=== PATIENT | male | born 1935 | race Caucasian/White ===

== ENCOUNTER → 2017-03-10 | Outpatient (CLI) | payer MEDICARE ==
[~2017-03-10] MED LIST: ASP81TEC PO; ATOR80TA PO; CLOP75TA PO; EPIN0.3P2 IM; HYDR-34 PO; IBUP1TAB15 PO; LISI10TA2 PO; Lisinopril; MELA1TAB20 PO; METO-333 PO; OMG1KC PO; PNT40TEC PO; PRAS10TA6 PO; PRD50T PO; RNT150T PO; SULF1TAB35 PO
--- NOTE | 2017-03-10 18:51 | Diagnostic Imaging Report ---
Three views of the left knee. INDICATION: Left knee pain. FINDINGS: No fracture, dislocation or radiopaque foreign body seen. There is a small to moderate suprapatellar effusion. Marginal osteophytes in the 3 compartment seen. There is also evidence of chondrocalcinosis. IMPRESSION: Moderate degenerative changes. Chondrocalcinosis. Joint effusion. Dictated by: Dictated on workstation # [id number]
--- NOTE | 2017-03-10 19:07 | Diagnostic Imaging Report ---
EXAMINATION: Two views of the left hip. INDICATION: Left hip pain. FINDINGS: No fracture, dislocation or radiopaque foreign body is seen. There is moderate narrowing of the joint space, particularly in the medial and lateral aspect with subchondral sclerosis. There is a minimal osteophyte formation. IMPRESSION: Mild to moderate left hip osteoarthritis. Dictated by: Dictated on workstation # [id number]
== END ==
LOC: RAD 16:22
PROVIDERS: ATTEND Family Medicine
DX: M25.562 Pain in left knee (principal); M25.552 Pain in left hip; M17.12 Unilateral primary osteoarthritis, left knee; M11.262 Other chondrocalcinosis, left knee; M25.462 Effusion, left knee; M16.12 Unilateral primary osteoarthritis, left hip
CPT/HCPCS: 73502; 73562

== ENCOUNTER → 2018-02-01 | Outpatient (CLI) | payer MEDICARE ==
[~2018-02-01] VITALS: Ht 185.4 cm; Wt 98.0 kg
[~2018-02-01] MED LIST changes: +CATHETER FLUSH 10 ML SYR IV PRN; +REGADENOSON 0.4 MG/5 ML SYR (LEXISCAN) IV ONE
[2018-02-01 13:10] VITALS: BP 160/84
[2018-02-01 13:14] VITALS: BP 150/62
--- NOTE | 2018-02-01 23:16 | STRESS TEST ---
DATE OF SERVICE: 02/01/2018 LEXISCAN MYOVIEW STRESS TEST REPORT REFERRING PHYSICIAN: Dr. Maradiaga. Baseline heart rate is 61, baseline blood pressure 160/84. Baseline EKG is sinus rhythm with no ischemic changes. In summary, patient was injected with 10.63 mCi of technetium-99 Myoview and the resting images were obtained. Then, the patient received 0.4 mg of Lexiscan followed by 31.0 mCi of technetium-99 Myoview. Throughout the test, there were no EKG changes. The resting and stress images were reviewed and compared in the short axis, horizontal long axis, and vertical long axis views. Review of the images showed increased intestinal and gastric uptake affecting the quality of the images. There is decreased uptake at the basal to mid inferior wall and inferolateral wall with mild reversibility. SSS is 9, SDS 2, TID value 1.07. On the gated images, the left ventricle appeared to be in normal size with normal contractility. Calculated ejection fraction 63%. CONCLUSION: 1. The patient tolerated Lexiscan well. 2. Gastric uptake and intestinal uptake affecting the quality of the images with questionable ischemia involving the mid to apical inferior wall and inferolateral wall. 3. Normal left ventricular size with normal contractility. Calculated ejection fraction 63%. Job ID: [id number] DocumentID: [id number] Dictated Date: 02/01/2018 15:42:33 Steam Box Operator Date: 02/01/2018 23:14:57 Dictated By: SHILPI DE OLIVEIRA MD
== END ==
LOC: CARD 11:47
PROVIDERS: ATTEND Physician Assistant
DX: I25.10 Atherosclerotic heart disease of native coronary artery without angina pectoris (principal); I10 Essential (primary) hypertension; E78.2 Mixed hyperlipidemia
CPT/HCPCS: 78452; 93017

== ENCOUNTER 2018-05-19 09:33 | Day surgery (SDC) | payer MEDICARE ==
[2018-05-19] VITALS (11 sets, daily range): BP systolic 105–138; BP diastolic 56–73
[~2018-05-19] VITALS: Ht 203.2 cm; Wt 94.8 kg
[~2018-05-19 09:33] MED LIST changes: -CATHETER FLUSH 10 ML SYR IV PRN; -REGADENOSON 0.4 MG/5 ML SYR (LEXISCAN) IV ONE
--- NOTE | 2018-05-19 09:48 | ED Chest Pain ---
General Chief Complaint: Chest Pain Stated Complaint: CP Nursing Triage Note: PT STATES CHEST PAIN AT NIGHT THAT STARTED 2 DAYS AGO. LT UPPER CHEST/SHOULDER PAIN RATED AT 4. Nursing Sepsis Screen: No Definite Risk Source: patient Exam Limitations: no limitations History of Present Illness Date Seen by Provider: May 19, 2018 Time Seen by Provider: 09:45 Initial Comments Patient presents c/ c/o chest pain. Had 2 episodes earlier this week @ night that he thought was heartburn. Went away on own. None last PM, but then had an episode this AM. (+) diaphoresis c/ it. No N/V. No dyspnea. Called Dr. Mancera who told him to came here to be checked out. (+) hx of previous stent. Pain better now. Reports he is suppose to take ASA daily but forgets it often. None this AM. States he was taken off Plavix several months ago. Timing/Duration: intermittent, gone now Severity/Quality: moderate Location: shoulder (left upper chest/shoulder) Radiation: no radiation Activities at Onset: none Prior CP/Workup: cardiac cath (and stent) ASA po MILK CONDENSER: No NTG SL MILK CONDENSER: No Associated Symptoms: diaphoresis; No nausea/vomiting, No shortness of breath Allergies and Home Medications Allergies Coded Allergies: venom-wasp (Verified Adverse Reaction, Intermediate, swelling, 08/15/11) Uncoded Allergies: Insect Stings (Adverse Reaction, Intermediate, Swelling, 08/15/11) Home Medications Aspirin 81 Mg Tabec, 81 MG PO DAILY, (Reported) Atorvastatin Calcium 80 Mg Tablet, 80 MG PO HS, (Reported) Epinephrine 0.3 Mg/0.3/Syringe Pen.injctr, 0.3 MG IM PRN Prescribed by: BERONICA HOUSTON on 08/15/11 1416 Ibuprofen/Diphenhydramine 1 Each Tablet, 1 TAB PO HS, (Reported) Lisinopril 10 Mg Tablet, 10 MG PO HS, (Reported) Melatonin/Pyridoxine Hcl (B6) 1 Each Tab.mphase, 10 MG PO HS PRN for SLEEP, ( Reported) NEEDED FOR SLEEP Metoprolol Tartrate 25 Mg Tablet, 12.5 MG PO BID, (Reported) TAKES 1/2 (25MG) TABLET [place] 3 Polyunsat Fatty Acids 1,000 Mg Cap, 1,000 MG PO DAILY, (Reported) Pantoprazole Sodium 40 Mg Tablet.dr, 40 MG PO DAILY, (Reported) Patient Home Medication List Home Medication List Reviewed: Yes Review of Systems Constitutional: see HPI, diaphoresis Respiratory: No Symptoms Reported, See HPI Cardiovascular: See HPI, Chest Pain Gastrointestinal: No Symptoms Reported, See HPI Genitourinary: No Symptoms Reported, See HPI Psychiatric/Neurological: No Symptoms Reported, See HPI Endocrine: No Symptoms Reported, See HPI Hematologic/Lymphatic: No Symptoms Reported, See HPI All Other Systems Reviewed Negative Unless Noted: Yes (Negative excepted noted.) Past Yvetdjt-Htokcb-Sqhoxw Hx Patient Social History Recent Foreign Travel: No Contact w/Someone Who Travel: No Recent Infectious Disease Expo: No Immunizations Up To Date Tetanus Booster (TDap): Unknown PED Vaccines UTD: Yes Date of Pneumonia Vaccine: Jun 15, 2013 Date of Influenza Vaccine: Jul 05, 2013 Seasonal Allergies Seasonal Allergies: Yes Past Medical History Reproductive Disorders: No Loss of Vision: Denies Hearing Impairment: Denies Adverse Reaction/Blood Tranf: No Family Medical History No Pertinent Family Hx Physical Exam Vital Signs Vital Signs - First Documented 05/19/18 09:35 Temp 96.6 Pulse 67 Resp 20 B/P (MAP) 179/80 (113) Pulse Ox 100 O2 Delivery Room Air Capillary Refill : Less Than 3 Seconds Height, Weight, BMI Height: 6'1.00" Weight: 210lbs. 0.0oz. 95.407047dn; 28.5 BMI Method:Stated General Appearance: No Apparent Distress, WD/WN HEENT: Normal ENT Inspection Respiratory: Lungs Clear, No Respiratory Distress Cardiovascular: Regular Rate, Rhythm Gastrointestinal: Non Tender Rectal: Deferred Extremity: Normal Inspection Neurologic/Psychiatric: Alert, Oriented x3, No Motor/Sensory Deficits, Normal Mood/Affect Skin: Warm/Dry Progress/Results/Core Measures Results/Orders Lab Results Laboratory Tests Test 05/19/18 09:44 Range/Units White Blood Count 7.9 4.3-11.0 10^3/uL Red Blood Count 4.59 4.35-5.85 10^6/uL Hemoglobin 13.8 13.3-17.7 G/DL Hematocrit 41 40-54 % Mean Corpuscular Volume 90 80-99 FL Mean Corpuscular Hemoglobin 30 25-34 PG Mean Corpuscular Hemoglobin Concent 34 32-36 G/DL Red Cell Distribution Width 13.4 10.0-14.5 % Platelet Count 258 130-400 10^3/uL Mean Platelet Volume 9.8 7.4-10.4 FL Neutrophils (%) (Auto) 59 42-75 % Lymphocytes (%) (Auto) 24 12-44 % Monocytes (%) (Auto) 12 0-12 % Eosinophils (%) (Auto) 4 0-10 % Basophils (%) (Auto) 1 0-10 % Neutrophils # (Auto) 4.7 1.8-7.8 X 10^3 Lymphocytes # (Auto) 1.9 1.0-4.0 X 10^3 Monocytes # (Auto) 1.0 0.0-1.0 X 10^3 Eosinophils # (Auto) 0.3 0.0-0.3 10^3/uL Basophils # (Auto) 0.0 0.0-0.1 10^3/uL Prothrombin Time 12.7 12.2-14.7 SEC INR Comment 1.0 0.8-1.4 Activated Partial Thromboplast Time 27 24-35 SEC Sodium Level 138 135-145 MMOL/L Potassium Level 4.3 3.6-5.0 MMOL/L Chloride Level 104 98-107 MMOL/L Carbon Dioxide Level 23 21-32 MMOL/L Anion Gap 11 5-14 MMOL/L Blood Urea Nitrogen 30 H 7-18 MG/DL Creatinine 1.28 0.60-1.30 MG/DL Estimat Glomerular Filtration Rate 54 BUN/Creatinine Ratio 23 Glucose Level 162 H 70-105 MG/DL Calcium Level 9.5 8.5-10.1 MG/DL Corrected Calcium 8.5-10.1 MG/DL Magnesium Level 2.2 1.8-2.4 MG/DL Total Bilirubin 0.7 0.1-1.0 MG/DL Aspartate Amino Transf (AST/SGOT) 38 H 5-34 U/L Alanine Aminotransferase (ALT/SGPT) 18 0-55 U/L Alkaline Phosphatase 86 40-136 U/L Troponin I 1.18 *H <0.30 NG/ML B-Type Natriuretic Peptide 39.4 <100.0 PG/ML Total Protein 7.6 6.4-8.2 GM/DL Albumin 4.6 H 3.2-4.5 GM/DL Lipase 36 8-78 U/L My Orders Orders - SUJIT PIKE DO Aspirin Chewable Tablet (Baby Aspirin Ch (05/19/18 09:52) BNP (05/19/18 09:54) Cbc With Automated Diff (05/19/18 09:54) Comprehensive Metabolic Panel (05/19/18 09:54) Lipase (05/19/18 09:54) Magnesium (05/19/18 09:54) Protime With Inr (05/19/18 09:54) Partial Thromboplastin Time (05/19/18 09:54) Troponin I (05/19/18 09:54) Chest 1 View, Ap/Pa Only (05/19/18 09:54) Aspirin Chewable Tablet (Baby Aspirin Ch (05/19/18 10:00) Ekg Tracing (05/19/18 09:57) Monitor-Rhythm Ecg Trace Only (05/19/18 09:57) Saline Lock/Iv-Start (05/19/18 09:57) Lidocaine 1% Inj 20 Ml (Xylocaine 1% Inj (05/19/18 10:47) Midazolam Injection (Versed Injection) (05/19/18 10:47) Fentanyl Injection (Sublimaze Injection (05/19/18 10:47) Ns Iv 1000 Ml (Sodium Chloride 0.9%) (05/19/18 10:47) Heparin (Land Planner) (Heparin (Land Planner)) (05/19/18 10:47) Medications Given in ED Current Medications Medications Dose Ordered Sig/Earline Route Start Time Stop Time Status Last Admin Dose Admin Aspirin 321 mg ONCE ONCE PO 05/19/18 10:00 05/19/18 10:01 DC 05/19/18 09:59 324 MG Vital Signs/I&O 05/19/18 05/19/18 05/19/18 09:35 09:49 09:59 Temp 96.6 96.6 Pulse 67 Resp 20 B/P (MAP) 179/80 (113) Pulse Ox 100 O2 Delivery Room Air Room Air Blood Pressure Mean: 113 Initial ECG Impression Date: May 19, 2018 Initial ECG Impression Time: 09:44 Initial ECG Rate: 68 Initial ECG Rhythm: Normal Sinus Initial ECG Intervals: Normal Initial ECG Comparisson: No Previous ECG Available Comment Probable old inferior infarct Diagnostic Imaging Diagonstic Imaging: Xray Plain Films/CT/US/NM/MRI: chest Reviewed: Reviewed/Discussed (negative per Radiologist) Departure Communication (Admissions) Time/Spoke to Admitting Phy: 10:20 Notified by lab that the patient's troponin is elevated. Contacted Dr. Mancera who stated he would be down and I suspect take the patient to the labor and delivery registered nurse. Impression Primary Impression: Chest pain Additional Impression: Elevated troponin Disposition: ADMITTED INPATIENT Condition: Stable Admissions Decision to Admit Reason: Admit from ER (General) Decision to Admit/Date: May 19, 2018 Time/Decision to Admit Time: 10:20 Transfer Time Spoke to Accepting Phy: 10:20 Departure-Patient Inst. Referrals: FABIEN BYRNE DO (PCP/Family) Primary Care Physician SUJIT PIKE DO May 19, 2018 09:48
[2018-05-19] MEDS ORDERED: ASPIRIN 81 MG CHEW (CHILDREN'S ASA) ONE (09:52)
[2018-05-19] MEDS ORDERED: AMLODIPINE (09:55)
[2018-05-19] MEDS ORDERED: ASPIRIN 81 MG CHEW (CHILDREN'S ASA) PO ONE (10:00)
[2018-05-19 10:01] LABS: BASOPHILS % (AUTO) 1 % (0-10); EOSINOPHILS # (AUTO) 0.3 10^3/uL (0.0-0.3); EOSINOPHILS % (AUTO) 4 % (0-10); HEMATOCRIT 41 % (40-54); HEMOGLOBIN 13.8 G/DL (13.3-17.7); LYMPHOCYTES # (AUTO) 1.9 X 10^3 (1.0-4.0); LYMPHOCYTES % (AUTO) 24 % (12-44); MEAN CORPUSCULAR HEMOGLOBIN 30 PG (25-34); MEAN CORPUSCULAR HGB CONC 34 G/DL (32-36); MEAN CORPUSCULAR VOLUME 90 FL (80-99); MEAN PLATELET VOLUME 9.8 FL (7.4-10.4); MONOCYTES % (AUTO) 12 % (0-12); NEUTROPHILS # (AUTO) 4.7 X 10^3 (1.8-7.8); NEUTROPHILS % (AUTO) 59 % (42-75); PLATELET COUNT 258 10^3/uL (130-400); RED BLOOD COUNT 4.59 10^6/uL (4.35-5.85); RED CELL DISTRIBUTION WIDTH 13.4 % (10.0-14.5); WHITE BLOOD COUNT 7.9 10^3/uL (4.3-11.0)
--- NOTE | 2018-05-19 10:11 | Diagnostic Imaging Report ---
INDICATION: Chest pain. PA chest obtained at 10:04 a.m. and compared to 01/14/2014. FINDINGS: Heart and mediastinal silhouette are normal in appearance. The lungs are clear. There is no pneumothorax or pleural fluid. IMPRESSION: Negative chest. Dictated by: Dictated on workstation # [id number]
[2018-05-19 10:13] LABS: PROTHROMBIN TIME PATIENT 12.7 SEC (12.2-14.7)
[2018-05-19 10:16] LABS: ALANINE AMINOTRANSFERASE 18 U/L (0-55); ALBUMIN 4.6 GM/DL (3.2-4.5); ALKALINE PHOSPHATASE 86 U/L (40-136); BILIRUBIN,TOTAL 0.7 MG/DL (0.1-1.0); BUN/CREATININE RATIO 23; CALCIUM 9.5 MG/DL (8.5-10.1); CARBON DIOXIDE 23 MMOL/L (21-32); CHLORIDE 104 MMOL/L (98-107); CREATININE SERUM 1.28 MG/DL (0.60-1.30); GFR ESTIMATED 54; GLUCOSE 162 MG/DL (70-105); LIPASE 36 U/L (8-78); MAGNESIUM 2.2 MG/DL (1.8-2.4); POTASSIUM 4.3 MMOL/L (3.6-5.0); SODIUM 138 MMOL/L (135-145); TOTAL PROTEIN 7.6 GM/DL (6.4-8.2)
[2018-05-19] MEDS ORDERED: NS IV 1000 ML 1,000 ML ONE (10:47)
[2018-05-19] MEDS ORDERED: fentaNYL INJECTION 100 MCG/2 ML AMP ONE (10:47)
[2018-05-19] MEDS ORDERED: LIDOCAINE 1% INJ 20 ML 20 ML VIAL ONE (10:47)
[2018-05-19] MEDS ORDERED: HEParin (CATH LAB) 2,000 ML IV ONE (10:47)
[2018-05-19] MEDS ORDERED: MIDAZOLAM 5 MG/5 ML (VERSED) VIAL ONE (10:47)
--- NOTE | 2018-05-19 11:07 | Cardiology History & Physical ---
HPI-Cardiology Cardiology Consultation Date of Consultation 05/19/18 Date of Admission Time Seen by Provider: 11:04 Indication: chest pain HPI 82 years old gentleman with history of coronary artery disease, history of borderline stress test, has been asymptomatic until about a week ago when he started having recurrent episodes of chest pain described it as dull in nature on the left side of his chest radiating to the left shoulder. Had an episode of chest pain last night associated with diaphoresis, another episode this morning he contacted my office and sent to the emergency room, currently feeling better. Denied any active pain, his troponin was noted to be elevated, denied any shortness of breath, no syncope or near syncopal episodes or claudications. PMH-Cardiology Immunizations Up To Date Tetanus Booster (DTap): Unknown Date of Pneumonia Vaccine: Jun 15, 2013 Date of Influenza Vaccine: Jul 05, 2013 Seasonal Allergies Seasonal Allergies: Yes Surgeries Yes (STENT IN HEART) Respiratory No Cardiovascular Yes Heart Attack, Hypertension Neurological No Reproductive System Hx Reproductive Disorders: No Genitourinary No Gastrointestinal No Musculoskeletal No Endocrine Yes Diabetes, Non-Insulin dep HEENT Loss of Vision: Denies Hearing Impairment: Denies Cancer No Psychosocial No Integumentary No Blood Transfusions No Adverse Rxn to Transfusion: No Other PMHx past medical history as described below Social History Patient Social History Marrital Status: Employed/Student: retired Alcohol Use: Rarely Uses Recreational Drug Use: No Recent Foreign Travel: No Contact w/other who traveled: No Recent Infectious Disease Expo: No Family Hx Significant Family History: No Pertinent Family Hx Other noncontributory to his current condition ROS-Cardiology Review of Systems General: No Chills, No Night Sweats, No Fatigue, No Malaise, No Appetite; Other (diaphoresis) HEENT: No Head Aches, No Visual Changes, No Eye Pain, No Ear Pain, No Dysphasia , No Sinus Congestion, No Post Nasal Drip, No Sore Throat Pulmonary: No Dyspnea, No Cough, No Pleuritic Chest Pain Cardiovascular: Chest Pain; No: Palpitations, Orthopnea, Paroxysmal Noc. Dyspnea, Edema, Lt Headedness Gastrointestinal: No: Nausea, Vomiting, Abdominal Pain, Diarrhea, Constipation , Melena, Hematochezia Genitourinary: No Dysuria, No Frequency, No Incontinence, No Hematuria, No Retention Musculoskeletal: No: neck pain, shoulder pain, arm pain, back pain, hand pain, leg pain, foot pain Neurological: No: Weakness, Numbness, Incoordination, Change in speech, Confusion, Seizures Home Medications & Allergies Allergies: Coded Allergies: venom-wasp (Verified Adverse Reaction, Intermediate, swelling, 08/15/11) Uncoded Allergies: Insect Stings (Adverse Reaction, Intermediate, Swelling, 08/15/11) Home Medication List Reviewed: Yes Exam-Cardiology Vital Signs Vital Signs Date Time Temp Pulse Resp B/P (MAP) Pulse Ox O2 Delivery O2 Flow Rate FiO2 05/19/18 12:10 96.9 Room Air 05/19/18 11:04 66 20 154/71 (113) 100 Exam General Appearance: Alert, Oriented X3, Cooperative, No Acute Distress HEENT: Atraumatic, PERRLA Respiratory: Clear to Auscultation, Normal Air Movement Cardiovascular: Regular Rate, Normal S1, Normal S2, No Murmurs Abdominal: Normal Bowel Sounds, Soft, No Tenderness, No Hepatosplenomegaly, No Masses Extremities: No Clubbing, No Cyanosis, No Edema, Normal Pulses, No Tenderness/ Swelling Skin: No Rashes, No Breakdown, No Significant Lesion Neuro: Normal Gait, Normal Speech, Strength at 5/5 X4 Ext, Normal Tone, Sensation Intact Psych/Mental Status: Mental Status NL, Mood NL Results Labs Labs Laboratory Tests 05/19/18 09:44: White Blood Count 7.9, Red Blood Count 4.59, Hemoglobin 13.8, Hematocrit 41, Mean Corpuscular Volume 90, Mean Corpuscular Hemoglobin 30, Mean Corpuscular Hemoglobin Concent 34, Red Cell Distribution Width 13.4, Platelet Count 258, Mean Platelet Volume 9.8, Neutrophils (%) (Auto) 59, Lymphocytes (%) (Auto) 24, Monocytes (%) (Auto) 12, Eosinophils (%) (Auto) 4, Basophils (%) (Auto) 1, Neutrophils # (Auto) 4.7, Lymphocytes # (Auto) 1.9, Monocytes # (Auto) 1.0, Eosinophils # (Auto) 0.3, Basophils # (Auto) 0.0, Prothrombin Time 12.7, INR Comment 1.0, Activated Partial Thromboplast Time 27, Sodium Level 138, Potassium Level 4.3, Chloride Level 104, Carbon Dioxide Level 23, Anion Gap 11, Blood Urea Nitrogen 30H, Creatinine 1.28, Estimat Glomerular Filtration Rate 54 , BUN/Creatinine Ratio 23, Glucose Level 162H, Calcium Level 9.5, Corrected Calcium , Magnesium Level 2.2, Total Bilirubin 0.7, Aspartate Amino Transf (AST/ SGOT) 38H, Alanine Aminotransferase (ALT/SGPT) 18, Alkaline Phosphatase 86, Troponin I 1.18*H, B-Type Natriuretic Peptide 39.4, Total Protein 7.6, Albumin 4.6H, Lipase 36 A/P-Cardiology Admission Diagnosis Chest pain Non-ST elevation with heart infarction Coronary artery disease Hypertension Hyperlipidemia Admission Status: Inpatient Order (span 2 midnights) Reason for Inpatient Admission: Acute myocardial infarction Assessment/Plan Chest pain, non-ST elevation myocardial infarction, coronary artery disease, had abnormal stress test in January 2018 and we discussed the management plan at that time recommended medical therapy unless he becomes symptomatic. I will proceed with cardiac catheterization. Borderline stress test February 01, 2018 revealing gastric uptake and intestinal uptake affecting the quality of the images with questionable ischemia involving the mid to apical inferior wall and inferolateral wall. EF 63%. SSS 9, SDS 2, TID 1.07. Similar to 2014 stress test. Patient is asymptomatic at this time. We will continue to monitor. Coronary artery disease, status post acute ST elevation myocardial infarction earlier in July 2013. Had 3.5x24 mm Promus stent to the LAD with good results, patient had slow flow in the LAD required aggressive anticoagulation therapy. Most recent cardiac catheterization on January 14, 2014 revealed patent stent in the proximal LAD with mild disease in the distal LAD, nonobstructive disease. Dominant circumflex artery with 40 percent stenosis proximally, 50 percent stenosis that midportion. Otherwise, nonobstructive disease. Small nondominant RCA. EF 60 percent. planning to proceed with cardiac catheterization Sinus bradycardia, currently asymptomatic. Continue to monitor heart rate Dyspnea on exertion, continue to monitor Hypertension, monitor blood pressure restart home medication Hyperlipidemia, Intolerant to Lipitor secondary to myalgias. was refusing any other cholesterol medications at that time. Reports recent lab work done at [facility]. Mild bilateral nonobstructive carotid artery stenosis, last carotid ultrasound was done in April 2017. Continue to monitor. Clinical Quality Measures AMI/AHF: ASA po Prior to arrival: SHILPI Kaufman MD May 19, 2018 11:07
--- NOTE | 2018-05-19 11:14 | Cardiac Procedure Note-CS/ASA ---
Pre-Procedure Note Pre-Op Procedure Note H&P Reviewed The H&P was reviewed, patient examined and no changes noted. Date H&P Reviewed: May 19, 2018 Time H&P Reviewed: 11:14 Conscious Sedation Pre-Proced Time Reviewed: 11:14 ASA Class: 3 Airway Mallampati Classification: ([place] appropriate class) I. II. III, IV Lungs Heart ASA score ASA 1: a normal healthy patient ASA 2: a patient with a mild systemic disease (mid diabetes, controlled hypertension, obesity x ASA 3: a patient with a severe systemic disease that limits activity (angina , COPD, prior Myocardial infarction) ASA 4: a patient with an incapacitating disease that is a constant threat to life (CHF, renal failure) ASA 5: a moribund patient not expected to survive 24 hrs. (ruptured aneurysm) ASA 6: a declared brain patient whose organs are being harvested. For emergent operations, add the letter E after the classification Grade 3 Sedation Plan: Analgesia, Amnesia, Plan communicated to team members, Discussed options with patient/fam, Discussed risks with patient/fam Note The patient is an appropriate candidate to undergo the planned procedure, sedation, and anesthesia. The patient immediately re-assessed prior to indication. SHILPI DE OLIVEIRA MD May 19, 2018 11:14
[2018-05-19] MEDS: NS IV 1000 ML 1,000 ML IV SCH ×4 (11:17→22:23)
[2018-05-19] MEDS ORDERED: NITRO DRIP 25000 MCG/D5W 250 ML IV ONE (11:26)
[2018-05-19] MEDS ORDERED: HEParin 1000 UNIT/ML (10ML VIAL) FOR BOLUS ONE (11:26)
[2018-05-19] MEDS ORDERED: EPTIFIBATIDE BOLUS 20 ML IV ONE (11:26)
[2018-05-19] MEDS ORDERED: ASPIRIN 325 MG (5 GR) TABLET ONE (11:52)
[2018-05-19] MEDS ORDERED: CLOPIDOGREL 300 MG (PLAVIX) TABLET PO ONE (11:53)
[2018-05-19] MEDS ORDERED: PATIENT MAY USE OWN MEDS, ALL PO SCH (12:00)
--- NOTE | 2018-05-19 12:05 | Cardiac Cath Report ---
Cardiac Cath Report Physician (s)/Curriculum Advisory Teacher (s) Physician SHILPI DE OLIVEIRA MD Pre-Procedure Diagnosis Pre-Procedure Diagnosis: non-ST elevation myocardial infarction Post-Procedure Note Procedure Start Date: May 19, 2018 Name of Procedure: left heart catheterization Stenting to the circumflex artery Findings/Procedure Note PROCEDURE NOTE: 82 years old gentleman with history of coronary artery disease and a stent to the LAD, admitted through the emergency room with acute chest pain, had troponin elevation, patient was diagnosed with non-ST elevation myocardial infarction and brought to emergency for cardiac catheterization straight from the emergency room to the Consignee. After explaining the procedure to the patient, all pros and cons were explained , all questions were answered. The patient signed the consent and then he was placed on the cardiac catheterization laboratory. Groin was prepped SL fashion local anesthesia was used. Sheath placed in the right femoral artery. Avery right and left catheter were used to access the coronary system. Avery right was used to cross the aortic valve, advanced to the left ventricular and left ventricular gram was done. Next Patient was given 5000 units of heparin. I was unable to intubate the left main with a FL guide. I used EBU guide placed it at the left main then advanced BMW wire reported at the distal circumflex artery. Predilatation with 2.515 mm balloon then I used palp 2.7523 mm deployed at the mid to distal circumflex artery where there was an 80 percent stenosis and dilated to 2.9 mm. Proximal to the stent there is an area of eccentric plaque with thrombus. I proceeded with deployment of another alpine 3.015 mm stent expanded to 3.25 mm , the area at the overlap also expanded to 3.25. Angiogram showed excellent results. Resolution of the stenosis. With excellent flow distally. At the end of the procedure the sheath was removed. Closure device Was used FINDINGS: Hemodynamics LV 125/12 and diastolic pressure of 12 Aorta 130/62 and mean of 59 ANATOMY: Left Main is free of obstructive disease Left Anterior Descending has patent stent proximally, at the distal portion there is a 50-60 percent stenosis by the apex area very small artery Left Circumflex is a large dominant artery with a thrombus in the proximal portion and severe stenosis at the midportion successful complex intervention with deployment of 2 overlapping stent proximally at Alpine 3.015 mm expanded to 3.25 mm and overlapping with the mid stent of 2.7523 mm expanded to 2.9 mm distally. Excellent results with no residual stenosis Right Coronory Artery is very small nondominant artery LV Gram is normal in size with normal contraction. Estimated ejection fraction 60 percent CONCLUSION: 1. Acute non-ST elevation myocardial infarction with large dominant circumflex artery with severe stenosis at the mid circumflex artery and thrombus in the proximal portion. Successful emergency intervention with deployment of 2 overlapping stent in the circumflex artery proximally at Alpine 3.015 mm and midportion 2.7523 mm extended proximally to 3.25 mm and distally to 2.9 mm with excellent results. 2. Patent stents in the proximal LAD with 50-60 percent stenosis at the distal LAD at the apex area very small artery. 3. Small nondominant right coronary artery 4. Normal left ventricular size and systolic function estimated ejection fraction 60 percent DISCUSSION AND RECOMMENDATION: maximize medical therapy Anesthesia Type: Conscious Sedation Estimated blood loss (mL): 10 ml Contrast Amount: 104 ml Total Radiation Dose: 1173 mGy Post-Procedure Diagnosis Post-operative diagnosis: Non-ST elevation myocardial infarction Coronary artery disease Hypertension Hyperlipidemia SHILPI DE OLIVEIRA MD May 19, 2018 12:05
[2018-05-19] MEDS ORDERED: LISI-552 PO (14:05)
[2018-05-19] MEDS ORDERED: METF500T8 PO (14:05)
[2018-05-19] MEDS ORDERED: OMEP40CA36 PO (14:05)
[2018-05-19] MEDS ORDERED: OMG1KC PO (14:09)
[2018-05-19] MEDS ORDERED: ACET-2469 PO (14:09)
[2018-05-19] MEDS ORDERED: METO-333 PO (14:09)
[2018-05-19] MEDS ORDERED: AMLO2.5T PO (14:09)
[2018-05-19] MEDS ORDERED: ROSU5TAB PO (14:09)
[2018-05-19] MEDS ORDERED: ASPI-983 PO (14:09)
--- OUTSIDE RECORDS SUMMARY | 2018-05-19 18:09 | XMS REPORT | Continuity of Care Document ---
Author Author [facility] Organization [facility] Address Unknown Phone Unavailable Allergies Active Description Code Type Severity Reaction Onset Reported/Identified Relationship to Patient Clinical Status Yes Insect Stings Insect Stings Moderate Swelling 08/15/2011 Yes venom-wasp [id number] Drug Allergy Moderate swelling 08/15/2011 Yes wasp venom [id number] Drug Allergy Moderate swelling 08/15/2011 Medications There is no data. 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,IN 07/08/2013 SHILPI DE OLIVEIRA MD Ot 414.01 CORONARY ATHEROSCLEROSIS OF [place] CORON 11/27/2014 DEANNA LONGO Ot 272.4 11/27/2014 DEANNA LONGO Ot 401.9 11/27/2014 DEANNA LONGO Ot 410.90 11/27/2014 DEANNA LONGO Ot 414.00 11/27/2014 DEANNA LONGO Ot 427.89 11/27/2014 DEANNA LONGO Ot 786.05 06/25/2015 SHILPI DE OLIVEIRA MD Ot 272.4 06/25/2015 SHILPI DE OLIVEIRA MD Ot 401.9 06/25/2015 SHILPI DE OLIVEIRA MD Ot 414.9 06/25/2015 SHILPI DE OLIVEIRA MD Ot 785.9 07/02/2015 SHILPI DE OLIVEIRA MD Ot 272.4 07/02/2015 SHILPI DE OLIVEIRA MD Ot 401.9 07/02/2015 SHILPI DE OLIVEIRA MD Ot 414.9 07/02/2015 SHILPI DE OLIVEIRA MD Ot 785.9 07/28/2015 YENNIFER MCNAIR, SHILPI Zamudio Ot E78.5 07/28/2015 YENNIFER MCNAIR, SHILPI Zamudio Ot I10 07/28/2015 YENNIFER MCNAIR, SHILPI Zamudio Ot I25.9 07/28/2015 YENNIFER MCNAIR, SHILPI Zamudio Ot R09.89 08/05/2015 YENNIFER MCNAIR, SHILPI Zamudio Ot E78.5 08/05/2015 YENNIFER MCNAIR, SHILPI Zamudio Ot I10 08/05/2015 YENNIFER MCNAIR, SHILPI Zamudio Ot I25.9 08/05/2015 YENNIFER MCNAIR, SHILPI Zamudio Ot R09.89 03/31/2017 ORENDER DO, FABIEN S Ot M11.262 OTHER CHONDROCALCINOSIS, LEFT KNEE 03/31/2017 ORENDER DO, FABIEN S Ot M16.12 UNILATERAL PRIMARY OSTEOARTHRITIS, LEFT 03/31/2017 ORENDER DO, FABIEN S Ot M17.12 UNILATERAL PRIMARY OSTEOARTHRITIS, LEFT 03/31/2017 ORENDER DO, FABIEN S Ot M25.462 EFFUSION, LEFT KNEE 03/31/2017 ORENDER DO, FABIEN S Ot M25.552 PAIN IN LEFT HIP 03/31/2017 ORENDER DO, FABIEN S Ot M25.562 PAIN IN LEFT KNEE 04/06/2017 ORENDER DO, FABIEN S Ot M11.262 OTHER CHONDROCALCINOSIS, LEFT KNEE 04/06/2017 ORENDER DO, FABIEN S Ot M16.12 UNILATERAL PRIMARY OSTEOARTHRITIS, LEFT 04/06/2017 ORENDER DO, FABIEN S Ot M17.12 UNILATERAL PRIMARY OSTEOARTHRITIS, LEFT 04/06/2017 ORENDER DO, FABIEN S Ot M25.462 EFFUSION, LEFT KNEE 04/06/2017 ORENDER DO, FABIEN S Ot M25.552 PAIN IN LEFT HIP 04/06/2017 ORENDER DO, FABIEN S Ot M25.562 PAIN IN LEFT KNEE 01/30/2018 DEANNA LONGO Ot 272.4 HYPERLIPIDEMIA NEC/NOS 01/30/2018 DEANNA LONGO Ot 401.9 HYPERTENSION NOS 01/30/2018 DEANNA LONGO Ot 410.90 ACU MYOCARD INFARCTION,UNSPEC SITE, EPIS 01/30/2018 DEANNA LONGO Ot 414.00 CORON ATHEROSCLER NOS TYPE VESSEL, NATIV 01/30/2018 DEANNA LONGO Ot 427.89 CARDIAC DYSRHYTHMIAS NEC 01/30/2018 DEANNA LONGO Ot 786.05 SHORTNESS OF BREATH 01/30/2018 SHILPI DE OLIVEIRA MD Ot 272.4 HYPERLIPIDEMIA NEC/NOS 01/30/2018 SHILPI DE OLIVEIRA MD Ot 401.9 HYPERTENSION NOS 01/30/2018 SHILPI DE OLIVEIRA MD Ot 414.01 CORONARY ATHEROSCLEROSIS OF [place] CORON 01/30/2018 SHILPI DE OLIVEIRA MD Ot 427.89 CARDIAC DYSRHYTHMIAS NEC 01/30/2018 SHILPI DE OLIVEIRA MD Ot 433.10 CAROTID ARTERY OCCLUSION W O CEREBRAL IN 01/30/2018 SHILPI DE OLIVEIRA MD Ot 433.30 MULT BILTRAL ARTERY OCCLUSION WO CEREBRA 01/30/2018 SHILPI DE OLIVEIRA MD Ot 794.30 ABN CARDIOVASC STUDY NOS 01/30/2018 SHILPI DE OLIVEIRA MD Ot V45.82 PERCUTANEOUS TRANSLUM CORON ANGIOPLASTY 01/30/2018 SHILPI DE OLIVEIRA MD Ot E78.5 HYPERLIPIDEMIA, UNSPECIFIED 01/30/2018 SHILPI DE OLIVEIRA MD Ot I10 ESSENTIAL (PRIMARY) HYPERTENSION 01/30/2018 SHILPI DE OLIVEIRA MD Ot I25.9 CHRONIC ISCHEMIC HEART DISEASE, UNSPECIF 01/30/2018 SHILPI DE OLIVEIRA MD Ot R09.89 OTH SYMPTOMS AND SIGNS INVOLVING THE CIR 01/30/2018 SHILPI DE OLIVEIRA MD Ot 272.4 HYPERLIPIDEMIA NEC/NOS 01/30/2018 SHILPI DE OLIVEIRA MD Ot 401.9 HYPERTENSION NOS 01/30/2018 SHILPI DE OLIVEIRA MD Ot 414.9 CHR ISCHEMIC HRT DIS NOS 01/30/2018 SHILPI DE OLIVEIRA MD Ot 785.9 CARDIOVAS SYS SYMP NEC 01/30/2018 FABIEN MARADIAGA DO Ot M11.262 OTHER CHONDROCALCINOSIS, LEFT KNEE 01/30/2018 AFBIEN MARADIAGA DO Ot M16.12 UNILATERAL PRIMARY OSTEOARTHRITIS, LEFT 01/30/2018 FABIEN MARADIAGA DO Ot M17.12 UNILATERAL PRIMARY OSTEOARTHRITIS, LEFT 01/30/2018 BRITTANY MARADIAGA DOLINE Geronimo Ot M25.462 EFFUSION, LEFT KNEE 01/30/2018 BRITTANY MARADIAGA DOLINE Geronimo Ot M25.552 PAIN IN LEFT HIP 01/30/2018 BRITTANY MARADIAGA DOLINE Geronimo Ot M25.562 PAIN IN LEFT KNEE 02/02/2018 DEANNA LONGO Ot E78.2 MIXED HYPERLIPIDEMIA 02/02/2018 DEANNA LONGO Ot I10 ESSENTIAL (PRIMARY) HYPERTENSION 02/02/2018 DEANNA LONGO Ot I25.10 ATHSCL HEART DISEASE OF [place] CORONARY 02/21/2018 DEANNA LONGO Ot E78.2 MIXED HYPERLIPIDEMIA 02/21/2018 DEANNA LONGO Ot I10 ESSENTIAL (PRIMARY) HYPERTENSION 02/21/2018 DEANNA LONGO Ot I25.10 ATHSCL HEART DISEASE OF [place] CORONARY 03/01/2018 DEANNA LONGO Ot E78.2 MIXED HYPERLIPIDEMIA 03/01/2018 DEANNA LONGO Ot I10 ESSENTIAL (PRIMARY) HYPERTENSION 03/01/2018 DEANNA LONGO Ot I25.10 ATHSCL HEART DISEASE OF [place] CORONARY Procedures Code Description Performed By Performed On 00.40 PROCEDURE ON SINGLE VESSEL 07/06/2013 00.45 INSERTION OF ONE VASCULAR STENT 07/06/2013 00.66 PERCUTANEOUS TRANSLUMINAL CORONARY ANGIO 07/06/2013 36.07 INSRT OF DRUG-ELUTING CORON ARTERY STENT 07/06/2013 37.22 LEFT HEART CARDIAC CATH 07/06/2013 88.53 LT HEART ANGIOCARDIOGRAM 07/06/2013 88.56 CORONAR ARTERIOGR-2 CATH 07/06/2013 99.10 INJECT/INFUSE THROMBOLYTIC AGENT 07/06/2013 Results There is no data. Encounters ACCT No. Visit Date/Time Discharge Status Pt. Type Provider Facility Loc./Unit Complaint [id number] 02/01/2018 11:47:00 02/01/2018 23:59:59 CLS Outpatient DEANNA LONGO [facility] CARD CAD,CAROTID STENOSIS [id number] 03/10/2017 16:22:00 03/10/2017 23:59:59 CLS Outpatient FABIEN MARADIAGA DO [facility] RAD LT HIP PAIN,LT KNEE PAIN [id number] 07/04/2015 09:51:00 07/04/2015 23:59:59 CLS Outpatient SHILPI DE OLIVEIRA MD [facility] CARD CAD,HTN,HLP [id number] 06/03/2015 12:10:00 06/03/2015 23:59:59 CLS Outpatient SHILPI DE OLIVEIRA MD [facility] CARD CAD,HTN,HLP [id number] 01/14/2014 06:47:00 01/14/2014 23:59:59 CLS Outpatient SHILPI DE OLIVEIRA MD [facility] CATH ABNORMAL STRESS,CAD,SOB, HTN,HLP [id number] 01/08/2014 11:53:00 01/08/2014 23:59:59 CLS Outpatient DEANNA LONGO [facility] RAD CAD, BRADYCARDIA,HLP [id number] 07/06/2013 15:10:00 07/08/2013 12:10:00 DIS Inpatient SHILPI DE OLIVEIRA MD [facility] ICU CHEST PAIN 11/201604/26/2018 17:44:07 04/26/2018 23:59:59 CLS Outpatient Fabien Maradiaga [id number] 07/05/2015 04:44:30 ACT Document Registration
--- OUTSIDE RECORDS SUMMARY | 2018-05-19 18:09 | XMS REPORT | Continuity of Care Document ---
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 Family History History Response Recorded Date/Time Hx Family Cancer N 07/06/13 3:37pm Hx Family Cardiac Disorders Y Sister 01/13 3:37pm Hx Family Hypertension Y 07/06/13 3:37pm Social History History Response Recorded Date/Time Alcohol Use Regular Use 07/06/13 3:34pm Recreational Drug Use N 07/06/13 3:34pm Recent Foreign Travel N 07/06/13 3:34pm Recent Infectious Disease Exposure N 01/13 3:34pm Hospitalization with Isolation Denies 03/15 8:30pm Allergies, Adverse Reactions, Alerts Allergen Type Severity Reaction Last Updated Wasp Venom Adverse Reaction Intermediate swelling 08/15/11 Insect Stings Adverse Reaction Intermediate Swelling 08/15/11 Medications Medication Dose Units Route Sig Qty Days Fish Oil 3000 Mg PO DAILY Atorvastatin Calcium (Lipitor 80MG) 1 Each PO DAILY Prasugrel Hydrochloride (Effient) 10 Mg PO DAILY Aspirin (Aspirin Ec 81 Mg) 81 Mg PO DAILY Metoprolol Tartrate (Lopressor 25 Mg Tab) 1 Each PO BID Pantoprazole Sodium (Protonix) 1 Tab PO DAILY 30 Melatonin/Pyridoxine Hcl (B6) (Melatonin 10 Mg Tablet) 10 Mg PO HS Epinephrine (Epipen) 0.3 Mg IM PRN 1 Ranitidine HCl (Zantac 150 Mg) 1 Tab PO BID 7 Prednisone 50 Mg PO DAILY 4 [Lisinopril] Immunizations Name Given Type Date of Influenza Vaccine 07/05/13 H pneumococcal polysaccharide PPV23 07/07/13 A pneumococcal polysaccharide PPV23 07/07/13 A pneumococcal polysaccharide PPV23 07/07/13 A Response Recorded Date/Time Status not known Unknown Results No Known Relevant Diagnostic Tests, Laboratory Data and/or Discharge Summary. Encounters Encounter Location Date/Time Discharged Inpatient [facility] 3:10pm Departed Emergency Room [facility] 15/08 11:30am
[2018-05-19] MEDS: OMEGA 3 (FISH OIL) 1000 MG CAP PO SCH (20:15)
[2018-05-19] MEDS ORDERED: ATORVASTATIN 20 MG (LIPITOR) TABLET PO SCH (21:00)
[2018-05-20] VITALS (16 sets, daily range): BP systolic 103–139; BP diastolic 53–82
[2018-05-20 04:11] LABS: HEMOGLOBIN 12.3 G/DL (13.3-17.7); RED BLOOD COUNT 4.03 10^6/uL (4.35-5.85); WHITE BLOOD COUNT 8.4 10^3/uL (4.3-11.0)
[2018-05-20 04:26] LABS: BUN/CREATININE RATIO 27; CALCIUM 8.9 MG/DL (8.5-10.1); CARBON DIOXIDE 22 MMOL/L (21-32); CHLORIDE 108 MMOL/L (98-107); CREATININE SERUM 0.89 MG/DL (0.60-1.30); GFR ESTIMATED > 60; GLUCOSE 104 MG/DL (70-105); SODIUM 138 MMOL/L (135-145)
[2018-05-20] MEDS: NS IV 1000 ML 1,000 ML IV SCH ×2 (05:39→08:08)
[2018-05-20] MEDS: OMEGA 3 (FISH OIL) 1000 MG CAP PO SCH (08:08)
[2018-05-20] MEDS ORDERED: lisINopril 20 MG (PRINIVIL) TABLET PO SCH (09:00)
[2018-05-20] MEDS ORDERED: CLOPIDOGREL 75 MG (PLAVIX) TABLET PO SCH (09:00)
[2018-05-20] MEDS ORDERED: ASPIRIN E.C. 81 MG (ECOTRIN) TAB PO SCH (09:00)
[2018-05-20] MEDS ORDERED: CLOP75TA28 PO (10:28)
--- NOTE | 2018-05-20 10:29 | Discharge Inst-Post CATH ---
Discharge Inst-CATH Post Cardiac Cath D/C Inst Follow Up/Plan Appointment with Dr. Mancera's office in 2-4 weeks CARDIAC CATH DISCHARGE INSTRUCTIONS *Hold Metformin for 48 hours post heart cath. ACTIVITY * Go Home directly and rest. * Limit activity of the leg (or wrist if it was used) for 7 days including aerobics, swimming, jogging, bicycling, etc. * Restrict stair-climbing for 7 days if possible, if not, climb up with your non -cath leg, then bring together on the same step. * Avoid lifting, pushing, pulling or excessive movement of the affected extremity for 7 days. * Customary sexual activity may be resumed after 2 days-use caution not to use a position that strains or causes pain to the affected extremity. * No driving for 24 hours. * NO SMOKING. * Avoid straining for bowel movements for 7 days. * Gentle walking on level ground is allowed. * Returning to work will depend on the type of procedure and the results. Your doctor will discuss this with you. CALL YOUR DOCTOR FOR ANY OF THE FOLLOWING: *If bleeding from the puncture site occurs- Apply gentle pressure to site with clean cloth and call your doctor or EMS. * If a knot or lump forms under the skin, increases in size, or causes pain. * If bruising appears to be worsening or moving further down your leg instead of disappearing. * Temperature above 101 F. CARE OF YOUR GROIN INCISION; * Bruising or purple discoloration of the skin near the puncture site is common. * You may shower only, no bathtub bathing for 5 days. Be careful to avoid slipping as your leg may feel stiff. * If a closure device was used on your femoral artery, please see the attached guide regarding care of the device and your leg. * REMOVE the dressing from your groin the next day after your procedure in the shower. CARE OF YOUR WRIST INCISION; * Bruising or purple discoloration of the skin near the puncture site is common. * You may shower. * DO NOT submerge wrist. * Remove dressing in 24 hours. SHILPI MANCERA MD May 20, 2018 10:29
--- NOTE | 2018-05-20 10:31 | Cardiology Progress Note ---
Subjective Date Seen by Provider: May 20, 2018 Time Seen by Provider: 10:29 Subjective/Events-last exam Patient is laying down in bed, comfortable, denied any further episodes of chest pain. No shortness of breath. Groin is healing well Review of Systems General: No Chills, No Night Sweats, No Fatigue, No Malaise, No Appetite, No Other HEENT: No Head Aches, No Visual Changes, No Eye Pain, No Ear Pain, No Dysphasia , No Sinus Congestion, No Post Nasal Drip, No Sore Throat, No Other Pulmonary: No Dyspnea, No Cough, No Pleuritic Chest Pain, No Other Cardiovascular: No: Chest Pain, Palpitations, Orthopnea, Paroxysmal Noc. Dyspnea, Edema, Lt Headedness, Other Objective-Cardiology Exam Last Set of Vital Signs Vital Signs 05/20/18 05/20/18 07:55 10:15 Temp 97.6 Pulse 69 Resp 11 B/P (MAP) 117/64 (81) Pulse Ox 96 O2 Delivery Room Air Capillary Refill : Less Than 3 Seconds I&O Intake and Output 05/20/18 00:00 Intake Total 550 ml Output Total 950 ml Balance -400 ml Intake Oral 550 ml Output Urine Total 950 ml Daily Weight Change No General: Alert, Oriented X3, Cooperative, No Acute Distress HEENT: Atraumatic, PERRLA Neck: Supple, No JVD Lungs: Clear to Auscultation, Normal Air Movement Heart: Regular Rate, Normal S1, Normal S2, No Murmurs Abdomen: Normal Bowel Sounds, Soft, No Tenderness, No Hepatosplenomegaly, No Masses Extremities: No Clubbing, No Cyanosis, No Edema, Normal Pulses, No Tenderness/ Swelling Skin: No Rashes, No Breakdown, No Significant Lesion Neuro: Normal Gait, Normal Speech, Strength at 5/5 X4 Ext, Normal Tone, Sensation Intact Psych/Mental Status: Mental Status NL, Mood NL Results Lab Laboratory Tests 05/20/18 03:21 A/P-Cardiology Admission Diagnosis Chest pain Non-ST elevation with heart infarction Coronary artery disease Hypertension Hyperlipidemia Assessment/Plan Chest pain, non-ST elevation myocardial infarction, status post cardiac catheterization and stenting to the circumflex artery. Borderline stress test February 01, 2018 revealing gastric uptake and intestinal uptake affecting the quality of the images with questionable ischemia involving the mid to apical inferior wall and inferolateral wall. EF 63%. SSS 9, SDS 2, TID 1.07. Similar to 2015 stress test. Patient is asymptomatic at this time. We will continue to monitor. Coronary artery disease, status post acute ST elevation myocardial infarction earlier in July 2013. Had 3.5x24 mm Promus stent to the LAD with good results, patient had slow flow in the LAD required aggressive anticoagulation therapy. Cardiac catheterization was done yesterday with 2 stents to the circumflex artery with excellent results 1. Acute non-ST elevation myocardial infarction with large dominant circumflex artery with severe stenosis at the mid circumflex artery and thrombus in the proximal portion. Successful emergency intervention with deployment of 2 overlapping stent in the circumflex artery proximally at [place] 3.015 mm and midportion 2.7523 mm extended proximally to 3.25 mm and distally to 2.9 mm with excellent results. 2. Patent stents in the proximal LAD with 50-60 percent stenosis at the distal LAD at the apex area very small artery. 3. Small nondominant right coronary artery 4. Normal left ventricular size and systolic function estimated ejection fraction 60 percent Sinus bradycardia, currently asymptomatic. Continue to monitor heart rate Dyspnea on exertion, continue to monitor Hypertension, monitor blood pressure restart home medication Hyperlipidemia, Intolerant to Lipitor secondary to myalgias. was refusing any other cholesterol medications at that time. Started on low dose Crestor as an outpatient, I'll continue monitoring Mild bilateral nonobstructive carotid artery stenosis, last carotid ultrasound was done in April 2017. Continue to monitor. Planning to discharge Clinical Quality Measures AMI/AHF: ASA po Prior to arrival: No DVT/VTE Risk/Contraindication: Risk Factor Score Per Nursin RFS Level Per Nursing on Admit: 4+=Very High SHILPI DE OLIVEIRA MD May 20, 2018 10:31
== END 2018-05-20 12:11 | disposition home or self-care (01) ==
LOC: EDUNIT# 09:33 → ER 09:35 → CATH 11:05 → ICU 12:10 → CATH 05-20 12:11
PROVIDERS: ATTEND Internal Medicine Cardiovascular Disease
DX: I21.4 Non-ST elevation (NSTEMI) myocardial infarction (principal); I25.10 Atherosclerotic heart disease of native coronary artery without angina pectoris; R00.1 Bradycardia, unspecified; R06.00 Dyspnea, unspecified; E78.5 Hyperlipidemia, unspecified; I65.23 Occlusion and stenosis of bilateral carotid arteries; I10 Essential (primary) hypertension; E11.9 Type 2 diabetes mellitus without complications; Z95.5 Presence of coronary angioplasty implant and graft
CPT/HCPCS: 36415; 71045; 80048; 80053; 83690; 83735; 83880; 84484; 85025; 85027; 85347; 85610; 85730; 93005; 93041; 93458

== ENCOUNTER 2018-06-03 16:09 | Observation (INO) | payer MEDICARE ==
[~2018-06-03] VITALS: Ht 185.4 cm; Wt 93.9 kg
[~2018-06-03 16:09] MED LIST changes: +ACET-2469 PO; +AMLO2.5T3 PO; +AMLODIPINE; +ASPI-983 PO; +CLOP75TA28 PO; +LISI-552 PO; +METF500T8 PO; +OMEP40CA36 PO; +ROSU5TAB PO
--- OUTSIDE RECORDS SUMMARY | 2018-06-03 16:16 | XMS REPORT | Continuity of Care Document ---
Author Author [facility] Organization [facility] Address Unknown Phone Unavailable Allergies Active Description Code Type Severity Reaction Onset Reported/Identified Relationship to Patient Clinical Status Yes Insect Stings Insect Stings Moderate Swelling 08/15/2011 Yes venom-wasp [id number] Drug Allergy Moderate swelling 08/15/2011 Yes wasp venom [id number] Drug Allergy Moderate swelling 08/15/2011 Medications There is no data. 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,IN 07/08/2013 SHILPI DE OLIVEIRA MD Ot 414.01 CORONARY ATHEROSCLEROSIS OF [place] CORON 11/27/2014 DEANNA LONGO Ot 272.4 11/27/2014 [...] SHILPI Zamudio Ot E78.5 07/28/2015 YENNIFER MCNAIR, HSILPI Zamudio Ot I10 07/28/2015 YENNIFER MCNAIR, SHILPI [...] OLIVEIRA MD Ot 414.01 CORONARY ATHEROSCLEROSIS OF [place] CORON 01/30/2018 SHILPI DE OLIVEIRA MD Ot [...] Ot M11.262 OTHER CHONDROCALCINOSIS, LEFT KNEE 01/30/2018 FABIEN MARADIAGA DO Ot M16.12 UNILATERAL PRIMARY OSTEOARTHRITIS, LEFT 01/30/2018 FABIEN MARADIAGA DO Ot M17.12 UNILATERAL PRIMARY OSTEOARTHRITIS, LEFT 01/30/2018 FABIEN MARADIAGA DO Ot M25.462 EFFUSION, LEFT KNEE 01/30/2018 FABIEN MARADIAGA DO S Ot M25.552 PAIN IN LEFT HIP 01/30/2018 FABIEN MARADIAGA DO S Ot M25.562 PAIN IN LEFT KNEE 02/02/2018 DEANNA LONGO Ot E78.2 MIXED HYPERLIPIDEMIA 02/02/2018 DEANNA LONGO Ot I10 ESSENTIAL (PRIMARY) HYPERTENSION 02/02/2018 DEANNA LONGO Ot I25.10 ATHSCL HEART DISEASE OF [place] CORONARY 02/21/2018 DEANNA LONGO Ot E78.2 MIXED HYPERLIPIDEMIA 02/21/2018 DEANNA LONGO Ot I10 ESSENTIAL (PRIMARY) HYPERTENSION 02/21/2018 DEANNA LONGO Ot I25.10 ATHSCL HEART DISEASE OF [place] CORONARY 03/01/2018 DEANNA LONGO Ot E78.2 MIXED HYPERLIPIDEMIA 03/01/2018 DEANNA LONGO K Ot I10 ESSENTIAL (PRIMARY) HYPERTENSION 03/01/2018 DEANNA LONGO Ot I25.10 ATHSCL HEART DISEASE OF [place] CORONARY 05/23/2018 SHILPI DE OLIVEIRA MD Ot E11.9 TYPE 2 DIABETES MELLITUS WITHOUT COMPLIC 05/23/2018 SHILPI DE OLIVEIRA MD, Ot E78.5 HYPERLIPIDEMIA, UNSPECIFIED 05/23/2018 SHILPI DE OLIVEIRA MD Ot I10 ESSENTIAL (PRIMARY) HYPERTENSION 05/23/2018 SHILPI DE OLIVEIRA MD Ot I21.4 NON-ST ELEVATION (NSTEMI) MYOCARDIAL INF 05/23/2018 SHILPI DE OLIVEIRA MD Ot I25.10 ATHSCL HEART DISEASE OF [place] CORONARY 05/23/2018 SHILPI DE OLIVEIRA MD Ot I65.23 OCCLUSION AND STENOSIS OF [place]ATERAL [place] 05/23/2018 SHILPI DE OLIVEIRA MD Ot R00.1 BRADYCARDIA, UNSPECIFIED 05/23/2018 SHILPI DE OLIVEIRA MD Ot R06.00 DYSPNEA, UNSPECIFIED 05/23/2018 SHILPI DE OLIVEIRA MD Ot Z95.5 PRESENCE OF CORONARY ANGIOPLASTY IMPLANT Procedures Code Description Performed By Performed On PROCEDURE ON SINGLE VESSEL 07/06/2013 00.45 INSERTION [...] Status Pt. Type Provider Facility Loc./Unit Complaint [id number] 05/19/2018 11:05:00 05/20/2018 12:11:00 DIS Outpatient SHILPI DE OLIVEIRA MD [facility] CATH CP [id number] 02/01/2018 11:47:00 02/01/2018 23:59:59 CLS Outpatient DEANNA LONGO [facility] CARD CAD,CAROTID STENOSIS [id number] 03/10/2017 16:22:00 03/10/2017 23:59:59 CLS Outpatient FABIEN MARADIAGA DO S [facility] RAD LT HIP PAIN,LT KNEE PAIN [id number] 07/04/2015 09:51:00 07/04/2015 23:59:59 CLS Outpatient SHILPI DE OLIVEIRA MD [facility] CARD CAD,HTN,HLP [id number] 06/03/2015 12:10:00 06/03/2015 23:59:59 CLS Outpatient SHILPI DE OLIVEIRA MD [facility] CARD CAD,HTN,HLP [id number] 01/14/2014 06:47:00 01/14/2014 23:59:59 CLS Outpatient SHILPI DE OLIVEIRA MD [facility] CATH ABNORMAL STRESS,CAD,SOB, HTN,HLP [id number] 01/08/2014 11:53:00 01/08/2014 23:59:59 CLS Outpatient DEANNA LONGO [facility] RAD CAD, BRADYCARDIA,HLP [id number] 07/06/2013 15:10:00 07/08/2013 12:10:00 DIS Inpatient YENNIFER MCNAIR, SHILPI Zamudio [facility] ICU CHEST PAIN 11/201604/26/2018 17:44:07 04/26/2018 23:59:59 [facility] Outpatient Fabien Maradiaga [id number] 07/05/2015 04:44:30 ACT Document Registration
[2018-06-03] MEDS ORDERED: ASPIRIN 81 MG CHEW (CHILDREN'S ASA) PO ONE ×2 (16:30→17:00)
[2018-06-03 17:30] LABS: ALANINE AMINOTRANSFERASE 17 U/L (0-55); ALBUMIN 4.7 GM/DL (3.2-4.5); ALKALINE PHOSPHATASE 87 U/L (40-136); BILIRUBIN,TOTAL 0.7 MG/DL (0.1-1.0); BUN/CREATININE RATIO 18; CALCIUM 10.3 MG/DL (8.5-10.1); CARBON DIOXIDE 21 MMOL/L (21-32); CHLORIDE 105 MMOL/L (98-107); CREATININE SERUM 1.45 MG/DL (0.60-1.30); GFR ESTIMATED 47; GLUCOSE 129 MG/DL (70-105); MAGNESIUM 2.2 MG/DL (1.8-2.4); POTASSIUM 4.3 MMOL/L (3.6-5.0); SODIUM 140 MMOL/L (135-145); TOTAL PROTEIN 7.7 GM/DL (6.4-8.2)
[2018-06-03 17:31] LABS: PROTHROMBIN TIME PATIENT 13.1 SEC (12.2-14.7)
[2018-06-03 17:37] LABS: MYOGLOBIN SERUM 152.8 NG/ML (10.0-92.0)
[2018-06-03 17:45] LABS: BASOPHILS % (AUTO) 0 % (0-10); EOSINOPHILS # (AUTO) 0.1 10^3/uL (0.0-0.3); EOSINOPHILS % (AUTO) 1 % (0-10); HEMATOCRIT 38 % (40-54); HEMOGLOBIN 13.2 G/DL (13.3-17.7); LYMPHOCYTES # (AUTO) 1.7 X 10^3 (1.0-4.0); LYMPHOCYTES % (AUTO) 14 % (12-44); MEAN CORPUSCULAR HEMOGLOBIN 31 PG (25-34); MEAN CORPUSCULAR HGB CONC 35 G/DL (32-36); MEAN CORPUSCULAR VOLUME 90 FL (80-99); MEAN PLATELET VOLUME 9.7 FL (7.4-10.4); MONOCYTES # (AUTO) 1.3 X 10^3 (0.0-1.0); MONOCYTES % (AUTO) 11 % (0-12); NEUTROPHILS # (AUTO) 9.3 X 10^3 (1.8-7.8); NEUTROPHILS % (AUTO) 75 % (42-75); PLATELET COUNT 225 10^3/uL (130-400); RED BLOOD COUNT 4.26 10^6/uL (4.35-5.85); RED CELL DISTRIBUTION WIDTH 12.7 % (10.0-14.5); WHITE BLOOD COUNT 12.5 10^3/uL (4.3-11.0)
[2018-06-03] MEDS ORDERED: NS IV 1000 ML 1,000 ML IV ONE (18:07)
--- NOTE | 2018-06-03 18:25 | Diagnostic Imaging Report ---
EXAM: CHEST 1 VIEW, AP/PA ONLY INDICATION: Chest pain. Dyspnea. COMPARISON: Chest radiograph 05/19/2018. FINDINGS: Normal heart size and central pulmonary vascularity. No focal pulmonary opacity, pleural effusion or pneumothorax. No acute osseous findings. No significant change. IMPRESSION: No acute cardiopulmonary findings. Dictated by: Dictated on workstation # [id number]
--- NOTE | 2018-06-03 19:01 | ED Chest Pain ---
General Chief Complaint: Chest Pain Stated Complaint: CP Nursing Triage Note: AMBULATORY TO ED WITH C/O CP, WAS SWEATY AND DIZZY AND HAD TO SIT DOWN. 2 WEEKS AGO HEART CATH WITH STENTS. Nursing Sepsis Screen: No Definite Risk Source: patient, old records Exam Limitations: no limitations History of Present Illness Date Seen by Provider: Jun 03, 2018 Time Seen by Provider: 16:16 Initial Comments This 82-year-old gentleman presents to the emergency room with complaints of left-sided chest pain associated with shortness of air, diaphoresis, dizziness, and weakness while playing golf about an hour or so prior to arrival. Patient had cardiac angiography performed on May 19 with placement of 2 stents. He has been compliant with Plavix and aspirin. Symptoms are almost completely resolved now. His pain is rated as minimal at 1/10. He states it was 7/10 at its worst. His other symptoms have resolved. Dr. Lora is his palliative care specialist and Dr. Maradiaga is his primary care provider. He denies any cough, fever, or shortness of breath before or after this episode. He took aspirin 162 mg prior to arrival. Allergies and Home Medications Allergies Coded Allergies: venom-wasp (Verified Adverse Reaction, Intermediate, swelling, 08/15/11) Uncoded Allergies: Insect Stings (Adverse Reaction, Intermediate, Swelling, 08/15/11) Home Medications Acetaminophen/Diphenhydramine 1 Each Tablet, 1 TAB PO HS, (Reported) Amlodipine Besylate 2.5 Mg Tablet, 2.5 MG PO HS, (Reported) Aspirin 81 Mg Tablet., 81 MG PO DAILY, (Reported) Clopidogrel Bisulfate 75 Mg Tablet, 75 MG PO DAILY Prescribed by: SHILPI DE OLIVEIRA on 05/20/18 1028 Lisinopril 20 Mg Tablet, 20 MG PO HS, (Reported) Metformin HCl 500 Mg Tab.er.24h, 500 MG PO DAILY, (Reported) Metoprolol Tartrate 25 Mg Tablet, 12.5 MG PO DAILY, (Reported) TAKES 1/2 (25MG) TABLET [place] 3 Polyunsat Fatty Acids 1,000 Mg Cap, 1,000 MG PO DAILY, (Reported) Omeprazole 40 Mg Capsule., 40 MG PO DAILY, (Reported) Rosuvastatin Calcium 5 Mg Tablet, 5 MG PO HS, (Reported) Patient Home Medication List Home Medication List Reviewed: Yes Review of Systems Review of Systems Constitutional: see HPI EENTM: No Symptoms Reported Respiratory: See HPI Cardiovascular: See HPI Gastrointestinal: No Symptoms Reported Genitourinary: No Symptoms Reported Musculoskeletal: no symptoms reported Skin: see HPI Psychiatric/Neurological: See HPI Endocrine: No Symptoms Reported Hematologic/Lymphatic: No Symptoms Reported Past Cmkukkd-Nptqog-Rxodpx Hx Past Med/Social Hx: Reviewed and Corrections made Patient Social History Alcohol Use: Occasionally Uses Number of Drinks Today: AA Alcohol Beverage of Choice: Beer Recreational Drug Use: No Former Smoker, Quit: May 03, 1978 Recent Foreign Travel: No Contact w/Someone Who Travel: No Recent Infectious Disease Expo: No Recent Hopitalizations: Yes (2 WEEKS PRIOR FOR HEART CATH WITH 2 STENTS) Immunizations Up To Date Tetanus Booster (TDap): Unknown PED Vaccines UTD: Yes Date of Pneumonia Vaccine: Jun 15, 2013 Date of Influenza Vaccine: Jul 05, 2013 Seasonal Allergies Seasonal Allergies: Yes Past Medical History Surgeries: Yes (STENT IN HEART) Coronary Stent Respiratory: No Cardiac: Yes Coronary Artery Disease, Hypertension Neurological: No Reproductive Disorders: No Genitourinary: No Gastrointestinal: No Musculoskeletal: No Endocrine: Yes Diabetes, Non-Insulin dep HEENT: No Loss of Vision: Denies Hearing Impairment: Hard of Hearing Cancer: No Psychosocial: No Integumentary: No Blood Disorders: No Adverse Reaction/Blood Tranf: No Family Medical History Reviewed Nursing Family Hx No Pertinent Family Hx Physical Exam Vital Signs Vital Signs - First Documented Capillary Refill : Less Than 3 Seconds Height, Weight, BMI Height: 6'1.00" Weight: 209lbs. 0.0oz. 94.107889sv; 23.0 BMI Method:Stated General Appearance: No Apparent Distress, WD/WN HEENT: PERRL/EOMI, Normal ENT Inspection Neck: Normal Inspection Respiratory: Chest Non Tender, Lungs Clear, Normal Breath Sounds, No Accessory Muscle Use, No Respiratory Distress Cardiovascular: Regular Rate, Rhythm, No Edema, No Murmur Gastrointestinal: Normal Bowel Sounds, Non Tender, Soft Extremity: Normal Inspection, No Calf Tenderness, No Pedal Edema Neurologic/Psychiatric: Alert, Oriented x3, No Motor/Sensory Deficits, Normal Mood/Affect, talent acquisition program manager II-XII Norm as Tested Skin: Normal Color, Warm/Dry Progress/Results/Core Measures Results/Orders Lab Results Laboratory Tests Test 06/03/18 17:01 Range/Units White Blood Count 12.5 H 4.3-11.0 10^3/uL Red Blood Count 4.26 L 4.35-5.85 10^6/uL Hemoglobin 13.2 L 13.3-17.7 G/DL Hematocrit 38 L 40-54 % Mean Corpuscular Volume 90 80-99 FL Mean Corpuscular Hemoglobin 31 25-34 PG Mean Corpuscular Hemoglobin Concent 35 32-36 G/DL Red Cell Distribution Width 12.7 10.0-14.5 % Platelet Count 225 130-400 10^3/uL Mean Platelet Volume 9.7 7.4-10.4 FL Neutrophils (%) (Auto) 75 42-75 % Lymphocytes (%) (Auto) 14 12-44 % Monocytes (%) (Auto) 11 0-12 % Eosinophils (%) (Auto) 1 0-10 % Basophils (%) (Auto) 0 0-10 % Neutrophils # (Auto) 9.3 H 1.8-7.8 X 10^3 Lymphocytes # (Auto) 1.7 1.0-4.0 X 10^3 Monocytes # (Auto) 1.3 H 0.0-1.0 X 10^3 Eosinophils # (Auto) 0.1 0.0-0.3 10^3/uL Basophils # (Auto) 0.0 0.0-0.1 10^3/uL Prothrombin Time 13.1 12.2-14.7 SEC INR Comment 1.0 0.8-1.4 Activated Partial Thromboplast Time 20 L 24-35 SEC Sodium Level 140 135-145 MMOL/L Potassium Level 4.3 3.6-5.0 MMOL/L Chloride Level 105 98-107 MMOL/L Carbon Dioxide Level 21 21-32 MMOL/L Anion Gap 14 5-14 MMOL/L Blood Urea Nitrogen 26 H 7-18 MG/DL Creatinine 1.45 H 0.60-1.30 MG/DL Estimat Glomerular Filtration Rate 47 BUN/Creatinine Ratio 18 Glucose Level 129 H 70-105 MG/DL Calcium Level 10.3 H 8.5-10.1 MG/DL Corrected Calcium 8.5-10.1 MG/DL Magnesium Level 2.2 1.8-2.4 MG/DL Total Bilirubin 0.7 0.1-1.0 MG/DL Aspartate Amino Transf (AST/SGOT) 27 5-34 U/L Alanine Aminotransferase (ALT/SGPT) 17 0-55 U/L Alkaline Phosphatase 87 40-136 U/L Myoglobin 152.8 H 10.0-92.0 NG/ML Troponin I < 0.30 <0.30 NG/ML Total Protein 7.7 6.4-8.2 GM/DL Albumin 4.7 H 3.2-4.5 GM/DL My Orders Orders - DAVID MOLINA MD Aspirin Chewable Tablet (Baby Aspirin Ch (06/03/18 17:00) Saline Lock/Iv-Start (06/03/18 18:07) Ns Iv 1000 Ml (Sodium Chloride 0.9%) (06/03/18 18:07) Medications Given in ED Current Medications Medications Dose Ordered Sig/Earline Route Start Time Stop Time Status Last Admin Dose Admin Aspirin 162 mg ONCE ONCE PO 06/03/18 17:00 06/03/18 17:01 DC 06/03/18 16:56 162 MG Sodium Chloride 1,000 ml @ 0 mls/hr Q0M ONCE IV 06/03/18 18:07 06/03/18 18:08 DC 06/03/18 18:19 999 MLS/HR Vital Signs/I&O 06/03/18 06/03/18 16:20 16:20 Temp 97.6 Pulse 86 Resp 20 B/P (MAP) 133/85 (101) O2 Delivery Room Air Room Air Blood Pressure Mean: 101 Progress Progress Note : Progress Note Patient received the balance of his aspirin dose. Workup demonstrated some renal insufficiency and a bump and myoglobin. A liter of IV normal saline was administered. Patient remained free of significant symptoms during his ER stay. Case was discussed with Dr. Boswell who agrees with admission for observation and further cardiac rule out. Initial ECG Impression Date: Jun 03, 2018 Initial ECG Impression Time: 16:21 Initial ECG Rate: 84 Initial ECG Rhythm: Normal Sinus Initial ECG Intervals: Normal Comment Normal sinus rhythm with no ST elevation or depression. No abnormal intervals or axis deviation. Some artifact present. Compared with prior with no significant changes. Diagnostic Imaging Diagonstic Imaging: Xray Plain Films/CT/US/NM/MRI: chest Comments Chest x-ray viewed by me and report reviewed. See report below: NAME: DHRUV GUTIÉRREZ [facility] REC#: [id number] PT STATUS: REG ER : 1935 PHYSICIAN: ROZ CARRION APRN ADMIT DATE: 06/03/18/ER Draft Date of Exam:06/03/18 CHEST 1 VIEW, AP/PA ONLY EXAM: CHEST 1 VIEW, AP/PA ONLY INDICATION: Chest pain. Dyspnea. COMPARISON: Chest radiograph 05/19/2018. FINDINGS: Normal heart size and central pulmonary vascularity. No focal pulmonary opacity, pleural effusion or pneumothorax. No acute osseous findings. No significant change. IMPRESSION: No acute cardiopulmonary findings. Dictated on workstation # [id number] Dict: 06/03/18 1821 Trans: 06/03/18 1825 [id number] Interpreted by: FELIX OCAMPO MD Departure Communication (Admissions) Time/Spoke to Admitting Phy: 19:02 Dr. Gregory Time/Spoke to Consulting Phy: 18:11 Dr. Boswell Impression Primary Impression: Chest pain Qualified Codes: R07.9 - Chest pain, unspecified Additional Impressions: Acute renal insufficiency Coronary artery disease Qualified Codes: I25.10 - Atherosclerotic heart disease of [place] coronary artery without angina pectoris Disposition: ADMITTED INPATIENT Condition: Improved Admissions Decision to Admit Reason: Admit from ER (General) Decision to Admit/Date: Jun 03, 2018 Time/Decision to Admit Time: 18:11 Departure-Patient Inst. Referrals: FABIEN MARADIAGA DO (PCP/Family) Primary Care Physician DAVID MOLINA MD Jun 03, 2018 19:01
--- OUTSIDE RECORDS SUMMARY | 2018-06-03 19:15 | XMS REPORT | Continuity of Care Document ---
Author Author [facility] Organization [facility] Address Unknown Phone Unavailable Allergies Active Description Code Type Severity Reaction Onset Reported/Identified Relationship to Patient Clinical Status Yes Insect Stings Insect Stings Moderate Swelling 08/15/2011 Yes venom-wasp [id number] Drug Allergy Moderate swelling 08/15/2011 Yes wasp venom [id number] Drug Allergy Moderate swelling 08/15/2011 Medications There is no data. 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,IN 07/08/2013 SHILPI DE OLIVEIRA MD Ot 414.01 CORONARY ATHEROSCLEROSIS OF [place] CORON 11/27/2014 DEANNA LONGO Ot 272.4 11/27/2014 [...] OLIVEIRA MD Ot 414.01 CORONARY ATHEROSCLEROSIS OF [place] CORON 01/30/2018 SHILPI DE OLIVEIRA MD Ot [...] LONGO Ot I25.10 ATHSCL HEART DISEASE OF [place] CORONARY 02/21/2018 DEANNA LONGO Ot E78.2 MIXED HYPERLIPIDEMIA 02/21/2018 DEANNA LONGO Ot I10 ESSENTIAL (PRIMARY) HYPERTENSION 02/21/2018 DEANNA LONGO Ot I25.10 ATHSCL HEART DISEASE OF [place] CORONARY 03/01/2018 DEANNA LONGO Ot E78.2 MIXED HYPERLIPIDEMIA 03/01/2018 DEANNA LONGO K Ot I10 ESSENTIAL (PRIMARY) HYPERTENSION 03/01/2018 DEANNA LONGO Ot I25.10 ATHSCL HEART DISEASE OF [place] CORONARY 05/23/2018 SHILPI DE OLIVEIRA MD Ot E11.9 TYPE 2 DIABETES MELLITUS WITHOUT COMPLIC 05/23/2018 SHILPI DE OLIVEIRA MD, Ot E78.5 HYPERLIPIDEMIA, UNSPECIFIED 05/23/2018 SHILPI DE OLIVEIRA MD Ot I10 ESSENTIAL (PRIMARY) HYPERTENSION 05/23/2018 SHILPI DE OLIVEIRA MD Ot I21.4 NON-ST ELEVATION (NSTEMI) MYOCARDIAL INF 05/23/2018 SHILPI DE OLIVEIRA MD Ot I25.10 ATHSCL HEART DISEASE OF [place] CORONARY 05/23/2018 SHILPI DE OLIVEIRA MD Ot [...] Status Pt. Type Provider Facility Loc./Unit Complaint [id number] 05/19/2018 11:05:00 05/20/2018 12:11:00 DIS Outpatient SHILPI DE OLIVEIRA MD [facility] CATH CP [id number] 02/01/2018 11:47:00 02/01/2018 23:59:59 CLS Outpatient DEANNA LONGO [facility] CARD CAD,CAROTID STENOSIS [id number] 03/10/2017 16:22:00 03/10/2017 23:59:59 CLS Outpatient FABIEN MARADIAGA DO S [facility] RAD LT HIP PAIN,LT KNEE PAIN [id number] 07/04/2015 09:51:00 07/04/2015 23:59:59 CLS Outpatient SHILPI DE OLIVEIRA MD [facility] CARD CAD,HTN,HLP [id number] 06/03/2015 12:10:00 06/03/2015 23:59:59 CLS Outpatient SHILPI DE OLIVEIRA MD [facility] CARD CAD,HTN,HLP [id number] 01/14/2014 06:47:00 01/14/2014 23:59:59 CLS Outpatient SHILPI DE OLIVEIRA MD [facility] CATH ABNORMAL STRESS,CAD,SOB, HTN,HLP [id number] 01/08/2014 11:53:00 01/08/2014 23:59:59 CLS Outpatient DEANNA LONGO [facility] RAD CAD, BRADYCARDIA,HLP [id number] 07/06/2013 15:10:00 07/08/2013 12:10:00 DIS Inpatient YENNIFER MCNAIR, SHILPI Zamudio [facility] ICU CHEST PAIN 11/201604/26/2018 17:44:07 04/26/2018 23:59:59 [facility] Outpatient Fabien Maradiaga [id number] 07/05/2015 04:44:30 ACT Document Registration
[2018-06-03 19:59] VITALS: BP 130/96
[2018-06-03] MEDS ORDERED: fentaNYL INJECTION 100 MCG/2 ML AMP IV PRN (20:15)
[2018-06-03] MEDS ORDERED: ONDANSETRON 4 MG/2 ML (SDV) Z0FRAN IV PRN (20:15)
[2018-06-03] MEDS ORDERED: CATHETER FLUSH 10 ML SYR IV PRN (20:15)
[2018-06-03] MEDS ORDERED: lisINopril 20 MG (PRINIVIL) TABLET PO SCH (21:00)
[2018-06-03] MEDS ORDERED: amLODIPine 2.5MG (NORVASC) TAB PO SCH (21:00)
[2018-06-03] MEDS ORDERED: CLOPIDOGREL 75 MG (PLAVIX) TABLET PO SCH (21:00)
[2018-06-04] VITALS: BP 115/62
[2018-06-04] MEDS: CATHETER FLUSH 10 ML SYR IV SCH ×3 (00:49→14:15)
[2018-06-04] MEDS: NS IV 1000 ML 1,000 ML IV SCH ×2 (00:49→01:21)
[2018-06-04 02:00] LABS: BASOPHILS % (AUTO) 0 % (0-10); EOSINOPHILS # (AUTO) 0.2 10^3/uL (0.0-0.3); EOSINOPHILS % (AUTO) 2 % (0-10); HEMATOCRIT 36 % (40-54); HEMOGLOBIN 12.4 G/DL (13.3-17.7); LYMPHOCYTES % (AUTO) 32 % (12-44); MEAN CORPUSCULAR HEMOGLOBIN 31 PG (25-34); MEAN CORPUSCULAR HGB CONC 34 G/DL (32-36); MEAN CORPUSCULAR VOLUME 90 FL (80-99); MEAN PLATELET VOLUME 9.7 FL (7.4-10.4); MONOCYTES # (AUTO) 1.1 X 10^3 (0.0-1.0); MONOCYTES % (AUTO) 11 % (0-12); NEUTROPHILS # (AUTO) 5.4 X 10^3 (1.8-7.8); NEUTROPHILS % (AUTO) 55 % (42-75); PLATELET COUNT 227 10^3/uL (130-400); RED BLOOD COUNT 4.04 10^6/uL (4.35-5.85); RED CELL DISTRIBUTION WIDTH 12.9 % (10.0-14.5); WHITE BLOOD COUNT 9.7 10^3/uL (4.3-11.0)
[2018-06-04 02:22] LABS: BUN/CREATININE RATIO 23; CALCIUM 9.2 MG/DL (8.5-10.1); CARBON DIOXIDE 22 MMOL/L (21-32); CHLORIDE 107 MMOL/L (98-107); CHOLESTEROL 133 MG/DL (< 200); CREATININE SERUM 1.11 MG/DL (0.60-1.30); GFR ESTIMATED > 60; GLUCOSE 113 MG/DL (70-105); HDL CHOLESTEROL 43 MG/DL (40-60); POTASSIUM 3.9 MMOL/L (3.6-5.0); SODIUM 139 MMOL/L (135-145); TRIGLYCERIDES 127 MG/DL (<150); VLDL CHOLESTEROL 25 MG/DL (5-40)
[2018-06-04 02:29] LABS: MYOGLOBIN SERUM 67.6 NG/ML (10.0-92.0)
[2018-06-04 04:23] VITALS: BP 104/41
[2018-06-04 08:00] VITALS: BP 123/64
[2018-06-04] MEDS ORDERED: ASPIRIN E.C. 81 MG (ECOTRIN) TAB PO SCH (09:00)
[2018-06-04 12:00] VITALS: BP 145/74
--- NOTE | 2018-06-04 12:55 | History & Physical-Hospitalist ---
History of Present Illness HPI/Chief Complaint CC: Chest pain HPI: This is an 82-year-old white male clinic patient of Dr. MARADIAGA with a past medical history of recent stent placement due to coronary artery stenosis with stent placement uncomplicated procedure by Dr. Mancera who had been compliant with Plavix and aspirin since discharge but yesterday he began having chest pain when working on his lawnmower. He did note that when he took his blood pressure the chest pain went away. He didn't know whether the blood pressure cuff had anything to do with the chest pain symptom resolution or not. Currently is not had any more chest pain but his troponin did have a slight elevation at 0.32 since admission. We are waiting for expertise of Dr. Boswell to evaluate the need for repeat catheterization to assure that stent placement is patent. Checked meds and labs and updated patient on the plan. Source: patient Exam Limitations: no limitations Date Seen 06/04/18 Time Seen by Provider: 10:30 Attending Physician Johnna Maradiaga DO PCP Johnna Maradiaga DO Referring Physician Date of Admission Jun 03, 2018 at 19:11 Home Medications & Allergies Home Medications Reviewed patient Home Medication Reconciliation performed by pharmacy medication reconciliations ekg/ecg technician and/or nursing. Patients Allergies have been reviewed. Allergies Allergies Coded Allergies venom-wasp (Verified Adverse Reaction, Intermediate, swelling, 08/15/11) Uncoded Allergies Insect Stings ( Adverse Reaction, Intermediate, Swelling, 08/15/11) Past Uswpsye-Vlmtyl-Viqldj Hx Past Med/Social Hx: Reviewed Nursing Past Med/Soc Hx, Reviewed and Corrections made Patient Social History Marrital Status: Employed/Student: retired ([employer] then [employer]) Alcohol Use: Occasionally Uses Number of Drinks Today: AA Alcohol Beverage of Choice: Beer Recreational Drug Use: No Smoking Status: Former Smoker Former Smoker, Quit: May 03, 1978 Physical Abuse Screen: No Sexual Abuse: No Recent Foreign Travel: No Contact w/other who traveled: No Recent Hopitalizations: Yes (2 WEEKS PRIOR FOR HEART CATH WITH 2 STENTS) Recent Infectious Disease Expo: No Immunizations Up To Date Tetanus Booster (TDap): Unknown Pediatric: Yes Date of Pneumonia Vaccine: Jun 15, 2013 Date of Influenza Vaccine: Jul 05, 2013 Seasonal Allergies Seasonal Allergies: Yes Past Medical History Surgeries: Coronary Stent (stent placement 2 weeks) Cardiac: Coronary Artery Disease, High Cholesterol, Hypertension Reproductive: No Sexually Transmitted Disease: No HIV/AIDS: No Endocrine: Diabetes, Non-Insulin dep Loss of Vision: Denies Hearing Impairment: Hard of Hearing History of Blood Disorders: No Adverse Reaction to Blood [place]: No Family History Reviewed Nursing Family Hx No Pertinent Family Hx, CAD Over 55 Years Old Review of Systems Constitutional: see HPI EENTM: no symptoms reported Respiratory: no symptoms reported Cardiovascular: chest pain Gastrointestinal: no symptoms reported Genitourinary: no symptoms reported Musculoskeletal: no symptoms reported Skin: no symptoms reported Psychiatric/Neurological: No Symptoms Reported All Other Systems Reviewed Negative Unless Noted: Yes Physical Exam Physical Exam Vital Signs Vital Signs - First Documented 06/03/18 19:45 Pulse Ox 100 Capillary Refill : Less Than 3 Seconds Height, Weight, BMI Height: 6'1.00" Weight: 207lbs. 0.0oz. 93.319726wo; 27.3 BMI Method:Stated General Appearance: No Apparent Distress, WD/WN, Chronically ill, Obese Eyes: Bilateral Eye Normal Inspection, Bilateral Eye PERRL HEENT: PERRL/EOMI, TMs Normal, Normal ENT Inspection, Pharynx Normal Neck: Full Range of Motion, Normal Inspection, Non Tender, Supple, Carotid Bruit Respiratory: Chest Non Tender, Lungs Clear, Normal Breath Sounds, No Accessory Muscle Use, No Respiratory Distress Cardiovascular: Regular Rate, Rhythm, No Edema, No Gallop, No JVD, No Murmur, Normal Peripheral Pulses Gastrointestinal: Normal Bowel Sounds, No Organomegaly, No Pulsatile Mass, Non Tender, Soft Back: Normal Inspection, No CVA Tenderness, No Vertebral Tenderness Extremity: Normal Capillary Refill, Normal Inspection, Normal Range of Motion, Non Tender, No Calf Tenderness, No Pedal Edema Neurologic/Psychiatric: Alert, Oriented x3, No Motor/Sensory Deficits, Normal Mood/Affect Skin: Normal Color, Warm/Dry Lymphatic: No Adenopathy Results Results/Procedures Labs Laboratory Tests 06/03/18 17:01 06/04/18 01:53 Patient resulted labs reviewed. Assessment/Plan Admission Diagnosis Assessment: Chest pain with recent stent placement 2 weeks ago maintained compliance with Plavix and aspirin Elevated troponin unsure if it's classified as non-ST elevation FL or not Hypertension Hyperlipidemia Obesity ARF now resolved with gently IVF Leukocytosis now resolved on repeat labs Plan: Await Dr. Boswell expertise and recommendations with a repeat cardiac catheterization will be required Monitor closely on telemetry Admission Status: Observation Diagnosis/Problems Diagnosis/Problems (1) Chest pain Status: Acute Qualifiers: Chest pain type: unspecified Qualified Codes: R07.9 - Chest pain, unspecified (2) Elevated troponin Status: Acute (3) Hypertension Status: Chronic Qualifiers: Hypertension type: essential hypertension Qualified Codes: I10 - Essential (primary) hypertension (4) Hyperlipidemia Status: Chronic Qualifiers: Hyperlipidemia type: mixed hyperlipidemia Qualified Codes: E78.2 - Mixed hyperlipidemia (5) Leukocytosis Status: Resolved Qualifiers: Leukocytosis type: leukemoid reaction Qualified Codes: D72.823 - Leukemoid reaction (6) Acute renal insufficiency Status: Resolved (7) Coronary artery disease Status: Chronic Qualifiers: Coronary Disease-Associated Artery/Lesion type: [place] artery [place] vs. transplanted heart: [place] heart Associated angina: angina presence unspecified Qualified Codes: I25.10 - Atherosclerotic heart disease of [place] coronary artery without angina pectoris Clinical Quality Measures AMI/AHF: ASA po Prior to arrival: Yes (2 81MG ASA) DVT/VTE Risk/Contraindication: Risk Factor Score Per Nursin RFS Level Per Nursing on Admit: 2=Moderate RICHY AGUILAR DO Jun 04, 2018 12:55
[2018-06-04 15:43] VITALS: BP 145/74
[2018-06-04 15:44] VITALS: BP 145/74
--- NOTE | 2018-06-04 16:30 | Consultation-Cardiology ---
HPI-Cardiology Cardiology Consultation: Date of Consultation 06/04/18 Time Seen by Provider: 14:30 Date of Admission Attending Physician Johnna Maradiaga DO Admitting Physician Johnna Maradiaga DO Consulting Physician ANGLE RAMIRES MD, MA, FACP, FACC, FSCAI, CCDS Physician requesting consult: Dr Gregory HPI: Chief Complaint: Reason for consult: Chest discomfort 82 yo man with h/o CAD who was admitted with chest discomfort to Dr Gregory on 06/03/18 Chest discomfort: L parasternal and lower midsternal, sharp, different form the ones experienced with ACS in the past, lasting a few min. 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 It was not associated with palp or syncope or other symptoms. States chest discomfort did not recur but he came to the ER anyway Has chronic mild to mod, slowly progressive exertional shortness of breath Does not report ankle swelling Review of Systems-Cardiology Review of Systems Constitutional: No malaise, No tiredness, No weight loss, No weight gain Eyes: No vision change Ears/Nose/Throat: No ear discharge, No nasal drainage, No recent hearing loss Respiratory: As described under HPI Cardiovascular: As described under HPI Gastrointestinal: No diarrhea, No nausea, No vomiting Genitourinary: No dysuria, No hematuria, No urine frequency changes Musculoskeletal: back pain (chronic) Psychiatric/Neurological: No seizure, No focal weakness, No syncope Hematologic: No bleeding abnormalities All Other Systems Reviewed Negative Unless Noted: Yes XRS-Nsvqxw-Voekdq Hx Patient Social History Marrital Status: 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 Allergies and Home Medications Allergies Coded Allergies: venom-wasp (Verified Adverse Reaction, Intermediate, swelling, 08/15/11) Uncoded Allergies: Insect Stings (Adverse Reaction, Intermediate, Swelling, 08/15/11) Home Medications Acetaminophen/Diphenhydramine 1 Each Tablet, 1 TAB PO HS, (Reported) Amlodipine Besylate 2.5 Mg Tablet, 2.5 MG PO HS, (Reported) Aspirin 81 Mg Tablet.dr, 81 MG PO DAILY, (Reported) Clopidogrel Bisulfate 75 Mg Tablet, 75 MG PO DAILY Prescribed by: SHILPI MANCERA on 05/20/18 1028 Lisinopril 20 Mg Tablet, 20 MG PO HS, (Reported) Metformin HCl 500 Mg Tab.er.24h, 500 MG PO DAILY, (Reported) Metoprolol Tartrate 25 Mg Tablet, 12.5 MG PO DAILY, (Reported) TAKES 1/2 (25MG) TABLET [place] 3 Polyunsat Fatty Acids 1,000 Mg Cap, 1,000 MG PO DAILY, (Reported) Omeprazole 40 Mg Capsule.dr, 40 MG PO DAILY, (Reported) Rosuvastatin Calcium 5 Mg Tablet, 5 MG PO HS, (Reported) Patient Home Medication List Home Medication List Reviewed: Yes Physical Exam-Cardiology Physical Exam Vital Signs/I&O 06/04/18 06/04/18 06/04/18 06/04/18 07:00 07:25 08:00 08:00 Temp 97.8 Pulse 79 79 Resp 16 B/P (MAP) 123/64 (83) Pulse Ox 97 98 O2 Delivery Room Air Room Air 06/04/18 06/04/18 06/04/18 06/04/18 12:00 12:00 13:00 15:43 Temp 99.0 98.6 Pulse 77 73 76 Resp 18 18 B/P (MAP) 145/74 (97) 145/74 (97) Pulse Ox 97 100 98 O2 Delivery Room Air Room Air Room Air 06/04/18 15:44 Pulse 76 Resp 18 B/P (MAP) 145/74 Pulse Ox 98 O2 Delivery Room Air 06/04/18 00:00 Intake Total 300 ml Balance 300 ml Capillary Refill : Less Than 3 Seconds Data Review Labs Laboratory Tests 06/03/18 17:01: White Blood Count 12.5H, Red Blood Count 4.26L, Hemoglobin 13.2L, Hematocrit 38L , Mean Corpuscular Volume 90, Mean Corpuscular Hemoglobin 31, Mean Corpuscular Hemoglobin Concent 35, Red Cell Distribution Width 12.7, Platelet Count 225, Mean Platelet Volume 9.7, Neutrophils (%) (Auto) 75, Lymphocytes (%) (Auto) 14, Monocytes (%) (Auto) 11, Eosinophils (%) (Auto) 1, Basophils (%) (Auto) 0, Neutrophils # (Auto) 9.3H, Lymphocytes # (Auto) 1.7, Monocytes # (Auto) 1.3H, Eosinophils # (Auto) 0.1, Basophils # (Auto) 0.0, Prothrombin Time 13.1, INR Comment 1.0, Activated Partial Thromboplast Time 20L, Sodium Level 140, Potassium Level 4.3, Chloride Level 105, Carbon Dioxide Level 21, Anion Gap 14, Blood Urea Nitrogen 26H, Creatinine 1.45H, Estimat Glomerular Filtration Rate 47 , BUN/Creatinine Ratio 18, Glucose Level 129H, Calcium Level 10.3H, Corrected Calcium , Magnesium Level 2.2, Total Bilirubin 0.7, Aspartate Amino Transf (AST/ SGOT) 27, Alanine Aminotransferase (ALT/SGPT) 17, Alkaline Phosphatase 87, Myoglobin 152.8H, Troponin I < 0.30, Total Protein 7.7, Albumin 4.7H 06/04/18 01:53: White Blood Count 9.7, Red Blood Count 4.04L, Hemoglobin 12.4L, Hematocrit 36L, Mean Corpuscular Volume 90, Mean Corpuscular Hemoglobin 31, Mean Corpuscular Hemoglobin Concent 34, Red Cell Distribution Width 12.9, Platelet Count 227, Mean Platelet Volume 9.7, Neutrophils (%) (Auto) 55, Lymphocytes (%) (Auto) 32, Monocytes (%) (Auto) 11, Eosinophils (%) (Auto) 2, Basophils (%) (Auto) 0, Neutrophils # (Auto) 5.4, Lymphocytes # (Auto) 3.0, Monocytes # (Auto) 1.1H, Eosinophils # (Auto) 0.2, Basophils # (Auto) 0.0, Sodium Level 139, Potassium Level 3.9, Chloride Level 107, Carbon Dioxide Level 22, Anion Gap 10, Blood Urea Nitrogen 26H, Creatinine 1.11, Estimat Glomerular Filtration Rate > 60, BUN /Creatinine Ratio 23, Glucose Level 113H, Calcium Level 9.2, Myoglobin 67.6, Troponin I 0.32*H, Triglycerides Level 127, Cholesterol Level 133, LDL Cholesterol Direct 72, VLDL Cholesterol 25, HDL Cholesterol 43 06/04/18 14:30: Troponin I < 0.30 A/P-Cardiology Assessment/Admission Diagnosis Chest pain w/o any evidence of ACS (Troponin negative: <0.3, 0.32, <0.3; serial ECGs also negative for ischemia or infarction) Coronary artery disease. Cath in July 2013 for ACS led to 3.5x24 mm Promus stent to the LAD. Cardiac cath in May 2018 for ACS led to 2 stents to the circumflex artery: overlapping Alp Xience (2.75x23 distal and 3x15 prox); LVEF 60% H/o sinus bradycardia Hypertension Hyperlipidemia, treated with low-dose Crestor Mild bilateral nonobstructive carotid artery stenosis, last carotid ultrasound was done in April 2017 Discussion and Recomendations * I reviewed his previous card records * He wishes to go home * Risk factor mod and management of chest discomfort reviewed * Advised compliance with meds * Advised f/u with Dr Mancera next week * Advised to return to ER in case of symptom recurrence or new symptoms Clinical Quality Measures AMI/AHF: ASA po Prior to arrival: Yes (2 81MG ASA) DVT/VTE Risk/Contraindication: Risk Factor Score Per Nursin RFS Level Per Nursing on Admit: 2=Moderate ANGLE RAMIRES MD FACP FAC CCDS Jun 04, 2018 16:30
== END 2018-06-04 15:27 | disposition home or self-care (01) ==
LOC: EDUNIT# 16:09 → ER 16:12 → UNDOADMOB 19:11 → ICU 19:11 → UNDODISOB 06-04 15:47
PROVIDERS: ADMIT Internal Medicine; ATTEND Family Medicine
DX: R07.9 Chest pain, unspecified (principal); I25.10 Atherosclerotic heart disease of native coronary artery without angina pectoris; I10 Essential (primary) hypertension; E11.9 Type 2 diabetes mellitus without complications; N28.9 Disorder of kidney and ureter, unspecified; E78.5 Hyperlipidemia, unspecified; R06.02 Shortness of breath; I65.23 Occlusion and stenosis of bilateral carotid arteries; R79.89 Other specified abnormal findings of blood chemistry; Z79.02 Long term (current) use of antithrombotics/antiplatelets; Z79.52 Long term (current) use of systemic steroids; Z79.84 Long term (current) use of oral hypoglycemic drugs; Z95.5 Presence of coronary angioplasty implant and graft; Z87.891 Personal history of nicotine dependence
CPT/HCPCS: 36415; 71045; 80048; 80053; 80061; 83735; 83874; 84484; 85025; 85610; 85730; 93005; 93041; 96360

== ENCOUNTER 2019-09-03 09:28 | Outpatient (CLI) | payer MEDICARE ==
[~2019-09-03] VITALS: Ht 182.9 cm; Wt 102.5 kg
[~2019-09-03 09:28] MED LIST changes: -AMLO2.5T3 PO; +AMLO2.5T4 PO
[2019-09-03 09:40] VITALS: BP 151/73
[2019-09-03 10:23] LABS: BASOPHILS % (AUTO) 1 % (0-10); EOSINOPHILS # (AUTO) 0.2 10^3/uL (0.0-0.3); EOSINOPHILS % (AUTO) 3 % (0-10); HEMATOCRIT 40 % (40-54); HEMOGLOBIN 13.3 G/DL (13.3-17.7); LYMPHOCYTES # (AUTO) 1.8 X 10^3 (1.0-4.0); LYMPHOCYTES % (AUTO) 29 % (12-44); MEAN CORPUSCULAR HEMOGLOBIN 30 PG (25-34); MEAN CORPUSCULAR HGB CONC 34 G/DL (32-36); MEAN CORPUSCULAR VOLUME 90 FL (80-99); MEAN PLATELET VOLUME 9.5 FL (7.4-10.4); MONOCYTES # (AUTO) 0.7 X 10^3 (0.0-1.0); MONOCYTES % (AUTO) 11 % (0-12); NEUTROPHILS # (AUTO) 3.5 X 10^3 (1.8-7.8); NEUTROPHILS % (AUTO) 56 % (42-75); PLATELET COUNT 223 10^3/uL (130-400); RED CELL DISTRIBUTION WIDTH 12.7 % (10.0-14.5); WHITE BLOOD COUNT 6.2 10^3/uL (4.3-11.0)
[2019-09-03 10:24] LABS: BILIRUBIN,URINE NEGATIVE (NEGATIVE); CLARITY,URINE CLEAR; COLOR,URINE YELLOW; GLUCOSE, URINE (UA) 1+ (NEGATIVE); KETONES,URINE NEGATIVE (NEGATIVE); LEUKOCYTE ESTERASE ,URINE NEGATIVE (NEGATIVE); NITRITE,URINE NEGATIVE (NEGATIVE); PH,URINE 5.5 (5-9); PROTEIN,URINE NEGATIVE (NEGATIVE)
[2019-09-03 10:30] LABS: BACTERIA,URINE NEGATIVE /HPF; SQUAMOUS EPITHELIAL CELL,UR 0-2 /HPF; WBC,URINE RARE /HPF
--- NOTE | 2019-09-03 10:34 | Diagnostic Imaging Report ---
EXAMINATION: Chest, two views. HISTORY: Pain in lower left leg. Preop clearance for left total knee arthroplasty. COMPARISON: 06/03/2018. FINDINGS: The lung volumes are normal. No focal consolidation is seen. No large pleural effusion or pneumothorax is seen. The cardiomediastinal silhouette is normal in size and contour. No acute osseous abnormality is seen. Degenerative changes are noted in the thoracic spine. IMPRESSION: 1. No acute pleural-parenchymal process. Dictated by: Dictated on workstation # [id number]
[2019-09-03 10:36] LABS: PROTHROMBIN TIME PATIENT 13.4 SEC (12.2-14.7)
[2019-09-03] MEDS ORDERED: PANT40TA3 PO (10:38)
[2019-09-03] MEDS ORDERED: ATOR10TA66 PO (10:38)
[2019-09-03] MEDS ORDERED: CLOP75TA28 PO (10:38)
[2019-09-03 10:47] LABS: CALCIUM 9.1 MG/DL (8.5-10.1); CREATININE SERUM 1.18 MG/DL (0.60-1.30); POTASSIUM 4.1 MMOL/L (3.6-5.0)
[2019-09-03] MEDS ORDERED: ACET-2469 PO (15:55)
== END 2019-09-03 10:30 | disposition home or self-care (01) ==
LOC: PREOP 09:28
PROVIDERS: ATTEND Orthopaedic Surgery
DX: Z01.818 Encounter for other preprocedural examination (principal); M79.662 Pain in left lower leg; M17.12 Unilateral primary osteoarthritis, left knee; Z22.322 Carrier or suspected carrier of Methicillin resistant Staphylococcus aureus
CPT/HCPCS: 36415; 71046; 80048; 81000; 85025; 85610; 86850; 86900; 86901; 87081; 93005

== ENCOUNTER → 2019-09-12 | Outpatient (CLI) | payer MEDICARE ==
[~2019-09-12] VITALS: Ht 185 cm; Wt 103.0 kg
[~2019-09-12] MED LIST changes: +ATOR10TA66 PO; +PANT40TA3 PO; +REGADENOSON 0.4 MG/5 ML SYR (LEXISCAN) IV ONE
[2019-09-12] MEDS: CATHETER FLUSH 10 ML SYR IV PRN ×2 (12:18→13:27)
[2019-09-12 13:25] VITALS: BP 152/81
--- NOTE | 2019-09-12 23:43 | STRESS TEST ---
DATE OF SERVICE: 09/12/2019 LEXISCAN MYOVIEW STRESS TEST REPORT REFERRING PHYSICIAN: Dr. Maradiaga. Baseline heart rate is 67. Baseline blood pressure 152/81. Baseline EKG is sinus rhythm with no ischemic changes. In summary, the patient was injected with 10.58 mCi of technetium-99 Myoview and the resting images were obtained. Then, the patient received 0.4 mg of Lexiscan followed by 30.5 mCi of technetium-99 Myoview. Throughout the test, there were no EKG changes. The resting and stress images were reviewed and compared in the short axis, horizontal long axis, and vertical long axis views. Review of the images showed motion artifact with diaphragmatic attenuation, there is decreased uptake involving the mid to apical inferior wall and inferolateral wall with no significant reversibility. SSS is 12, SDS 3, TID value 1.09. On the gated images, the left ventricle appeared to be normal size with normal contractility, mild hypokinesia at the inferior wall. Calculated ejection fraction 60%. CONCLUSION: 1. The patient tolerated Lexiscan well. 2. Diaphragmatic attenuation with fixed defect involving mid to apical inferior wall and inferolateral wall. 3. Normal left ventricular size with mild hypokinesia at the inferior wall. Calculated ejection fraction 60%. Job ID: [id number] DocumentID: [id number] Dictated Date: 09/12/2019 17:18:27 Medical Library Assistant Date: 09/12/2019 23:42:45 Dictated By: SHILPI DE OLIVEIRA MD
== END ==
LOC: CARD 12:01
PROVIDERS: ATTEND Physician Assistant
DX: I11.9 Hypertensive heart disease without heart failure (principal); I25.10 Atherosclerotic heart disease of native coronary artery without angina pectoris; E78.2 Mixed hyperlipidemia
CPT/HCPCS: 78452; 93017

== ENCOUNTER → 2019-09-14 | Outpatient (CLI) | payer MEDICARE ==
[~2019-09-14] MED LIST changes: -REGADENOSON 0.4 MG/5 ML SYR (LEXISCAN) IV ONE
== END ==
LOC: CARD 13:51
PROVIDERS: ATTEND Physician Assistant
DX: I08.2 Rheumatic disorders of both aortic and tricuspid valves (principal); I25.10 Atherosclerotic heart disease of native coronary artery without angina pectoris; I10 Essential (primary) hypertension; E78.2 Mixed hyperlipidemia
CPT/HCPCS: 93306

== ENCOUNTER 2019-09-18 08:36 | Inpatient (IN) | payer MEDICARE ==
--- NOTE | 2019-09-03 15:57 | NUR ---
HAD A LIST FAXED OVER FROM THE [facility] AND CALLED [facility] FOR A LIST OF RECENTLY FILLED MEDICATIONS. [facility] FILLED: LISINOPRIL 20MG DAILY (ON DAY ) AMLODIPINE 2.5MG DAILY (ON DAY ) METFORMIN XR 500MG DAILY (ON DAY ) 03-29-19 METOPROLOL TARTRATE 25MG 1/2 TAB DAILY #45 (STATES HE HAS SOME SUPPLY LEFT OVER FROM HIS LATE 'S SUPPLY AND HAS BEEN TAKING THEM) [facility]: 08-25-19 ATORVASTATIN 10MG 1/2 TAB HS #45 06-13-19 PLAVIX 75MG DAILY #90 07-31-19 PROTONIX 40MG DAILY #90 HE STATES HE TAKES TYLENOL PM OTC NEEDED. [facility] HAD SEVERAL NON [facility] OTC MEDS LISTED THAT THE PATIENT STATES HE DOES NOT TAKE REGULARLY, THEY ARE FOLLOWS: ASPIRIN 81MG FISH OIL MAGNESIUM OXIDE
[~2019-09-18] VITALS: Ht 182.9 cm; Wt 103.0 kg
[2019-09-18] VITALS (13 sets, daily range): BP systolic 114–177; BP diastolic 65–96
[2019-09-18] MEDS ORDERED: GABAPENTIN 600 MG (NEURONTIN) TAB PO ONE (09:15)
[2019-09-18] MEDS ORDERED: ONDANSETRON 4 MG/2 ML (SDV) Z0FRAN IVP ONE (09:15)
[2019-09-18] MEDS ORDERED: ceFAZolin 2 GM/50 ML NS 50 ML IV ONE (09:15)
[2019-09-18] MEDS ORDERED: CELECOXIB 100 MG (CeleBREX) CAP PO ONE (09:15)
[2019-09-18] MEDS ORDERED: GENTAMICIN 40 MG/ML 2 ML INJ SDV ONE (09:25)
[2019-09-18] MEDS ORDERED: NEO/POLY/BAC (NEOSPORIN) OINT 15 GM TUBE ONE (09:25)
[2019-09-18] MEDS: LACTATED RINGERS 1,000 ML IV PRN ×2 (09:38→11:01)
[2019-09-18] MEDS ORDERED: fentaNYL INJECTION 250 MCG/5 ML AMP ONE (09:51)
[2019-09-18] MEDS ORDERED: INTRA-ARTICULAR IU ONE ×4 (10:30)
--- NOTE | 2019-09-18 10:37 | Progress Note-Pre Operative ---
Pre-Operative Progress Note H&P Reviewed The H&P was reviewed, patient examined and no changes noted. Date Seen by Provider: Sep 18, 2019 Time Seen by Provider: 10:00 Date H&P Reviewed: Sep 18, 2019 Time H&P Reviewed: 10:00 Pre-Operative Diagnosis: Primary Osteoarthritis Left Knee RALPH WEBER DO Sep 18, 2019 10:37 am POS
[2019-09-18] MEDS ORDERED: ROCURONIUM 10 MG/ML 5 ML SYRINGE IV ONE (10:46)
[2019-09-18] MEDS ORDERED: TRANEXAMIC ACID 100 MG/ML 10 ML INJECTION IV ONE (10:47)
[2019-09-18] MEDS ORDERED: ONDANSETRON 4 MG/2 ML (SDV) Z0FRAN ONE ×2 (10:47→13:05)
[2019-09-18] MEDS ORDERED: proPOfol 200 MG/20 ML (DIPRIVAN) VIAL IV ONE (10:47)
[2019-09-18] MEDS ORDERED: LIDOCAINE PF 2% 5 ML (XYLOCAINE) VIAL ONE ×2 (10:47→12:57)
[2019-09-18] MEDS ORDERED: SEVOFLURANE (ULTANE) 15 ML INHAL SOLN ONE ×8 (10:48→12:49)
--- NOTE | 2019-09-18 12:14 | Progress Note-Post Operative ---
Post-Operative Progess Note Surgeon (s)/Malter Operator (s) Surgeon RALPH WEBER DO Malter Operator: Hansel Rush LINER INSTALLER-Padmini Pre-Operative Diagnosis Primary Osteoarthritis Left Knee Post-Operative Diagnosis same Procedure & Operative Findings Date of Procedure 09/18/19 Procedure Performed/Findings Left Total Knee Arthroplasty Anesthesia Type general Estimated Blood Loss Estimated blood loss (mL): 150 ml Specimens/Packing Specimens Removed none RALPH WEBER DO Sep 18, 2019 12:14 pm POS
[2019-09-18] MEDS ORDERED: ONDANSETRON 4 MG/2 ML (SDV) Z0FRAN IV PRN (12:45)
[2019-09-18] MEDS ORDERED: MILK OF MAGNESIA 400 MG/5 ML 30 ML UDC PO PRN (12:45)
[2019-09-18] MEDS ORDERED: D5 1/2 NS 1000 ML IV SOLUTION 1,000 ML IV SCH (12:45)
[2019-09-18] MEDS ORDERED: diphenhydrAMINE 50 MG/ML INJ (BENADRYL) IV PRN (12:45)
[2019-09-18] MEDS ORDERED: LORATADINE (CLARITIN) 10 MG TAB PO PRN (12:45)
[2019-09-18] MEDS ORDERED: BACLOFEN 10 MG (LIORESAL) TAB PO PRN (12:45)
[2019-09-18] MEDS ORDERED: morphine INJ 4 MG/ML 1 ML (VIAL/SYRINGE) IV PRN (12:45)
[2019-09-18] MEDS ORDERED: ONDANSETRON 4 MG (ZOFRAN) ORAL DISSOLVE TAB PO PRN (12:45)
[2019-09-18] MEDS ORDERED: BISACODYL 10 MG SUPP (DULCOLAX) PR PRN (12:45)
[2019-09-18] MEDS ORDERED: ONDANSETRON 4 MG/2 ML (SDV) Z0FRAN IVP PRN (13:00)
[2019-09-18] MEDS ORDERED: HYDROmorphone 2 MG/ML VIAL (DILAUDID) IV ONE (13:00)
[2019-09-18] MEDS ORDERED: morphine INJ 10 MG/ML 1ML (SYR OR VIAL) IVP ONE (13:00)
[2019-09-18] MEDS ORDERED: morphine INJ 10 MG/ML 1ML (SYR OR VIAL) ONE (13:04)
[2019-09-18] MEDS ORDERED: KETOROLAC 30 MG/ML VIAL ONE (13:05)
--- NOTE | 2019-09-18 13:34 | Diagnostic Imaging Report ---
INDICATION: Postop knee replacement. TECHNIQUE: AP and lateral views of the left knee were obtained at 12:55 PM. FINDINGS: The left knee prosthesis appears in good alignment with no sign of fracture or device loosening. Soft tissue gas is present, compatible with recent surgery. There is no unexpected foreign body. IMPRESSION: Well aligned left knee prosthesis with no unexpected foreign body. Dictated by: Dictated on workstation # [id number]
[2019-09-18] MEDS: GABAPENTIN 100 MG (NEURONTIN) CAP PO SCH ×2 (14:00→20:11)
[2019-09-18] MEDS: HYDROcodone/APAP 10 MG/325 MG (LORTAB) TAB PO PRN ×2 (16:02→20:11)
[2019-09-18] MEDS: D5 1/2 NS 1000 ML IV SOLUTION 1,000 ML IV SCH (16:02)
[2019-09-18] MEDS: ENOXAPARIN 40 MG/0.4 ML (LOVENOX) SYR SC SCH (16:46)
[2019-09-18] MEDS: KETOROLAC 30 MG/ML VIAL IV SCH (17:07)
[2019-09-18] MEDS: ceFAZolin 2 GM/50 ML NS 50 ML IV SCH (17:07)
[2019-09-18] MEDS: ACETAMINOPHEN 500 MG TAB (TYLENOL) PO SCH (19:31)
[2019-09-18] MEDS: SENNA W/DOCUSATE (SENOKOT S) TABLET PO SCH (20:11)
[2019-09-19] MEDS: ACETAMINOPHEN 500 MG TAB (TYLENOL) PO SCH ×4 (00:03→23:12)
[2019-09-19] MEDS: KETOROLAC 30 MG/ML VIAL IV SCH ×3 (00:03→11:49)
[2019-09-19] MEDS: HYDROcodone/APAP 10 MG/325 MG (LORTAB) TAB PO PRN ×2 (00:03→23:12)
[2019-09-19] MEDS: ceFAZolin 2 GM/50 ML NS 50 ML IV SCH (00:03)
[2019-09-19] MEDS: D5 1/2 NS 1000 ML IV SOLUTION 1,000 ML IV SCH ×2 (00:04→17:43)
--- NOTE | 2019-09-19 03:52 | OPERATIVE REPORT ---
DATE OF SERVICE: 09/18/2019 PREOPERATIVE DIAGNOSIS: Primary osteoarthritis, left knee. POSTOPERATIVE DIAGNOSIS: Primary osteoarthritis, left knee. PROCEDURE: Left total knee arthroplasty. SURGEON: Ralph Weber DO FLIGHT TEACHER: LORRIE Khan. SURGICAL COFFEE SHOP MANAGER DUTIES: Hansel Rush, surgical scheduler was utilized throughout the entire procedure for patient positioning, soft tissue retraction, assistance in placement of total knee implants, wound closure, dressing application and the patient transfer. ANESTHESIA: General. ESTIMATED BLOOD LOSS: 150 mL. COMPLICATIONS: None. OPERATIVE TIME: Please see anesthesia report. INDICATIONS AND FINDINGS: The patient is an 84-year-old male seen with chief complaint of progressive left knee pain, nonresponsive to conservative treatment. The patient has significant varus deformity to the left knee with a 10-degree flexion contracture. The patient was taken to surgery where total knee arthroplasty was performed on the left without complication utilizing the [employer] Realtime Gamesguard total knee system with a press fit 70 mm femoral component, a cemented 79 mm fixed I-beam tibial component, a 37 mm 3-pronged all polyethylene cemented standard patellar component with a 10 mm anterior stabilized tibial bearing implant. Palacos bone cement was utilized. PROCEDURE IN DETAIL: The patient was transferred to the operating room and placed supine upon the operating table and a general inhalation anesthetic was administered. A well-padded pneumatic tourniquet was placed about the upper aspect of left thigh. A ChloraPrep and sterile drape of left lower extremity was performed. The left leg was elevated, exsanguinated and the tourniquet was inflated to 300 mmHg pressure. An anterior longitudinal midline incision was made over the anterior aspect of the left knee. The incision was deepened through a medial parapatellar incision. Patella was subluxed laterally. Osteophytes from the distal femur were removed with a bone rongeur. A balloon pilot hole was then drilled in the distal femur and intramedullary sheila was inserted utilizing a 5-degree valgus cutting angle, a distal femoral cutting guide was assembled and distal femoral osteotomy was completed. The distal femur was sized to a 70 mm femoral component. A 4-way cutting guide was assembled. Anterior, posterior and chamfer cuts of the distal femur were made. Tibia was subluxed anteriorly after excising the anterior cruciate ligament. Remnants of the medial and lateral menisci were excised. A balloon pilot hole was then drilled in the proximal tibia. An intramedullary sheila was inserted measuring off the exposed bone over the proximal medial tibia. A proximal tibial cutting guide was assembled and a proximal tibial osteotomy was completed. The knee was then taken into full extension with a 10 mm gap sizer and found to be stable after further subperiosteal dissection over the proximal medial tibia. Osteophytes from the rim of the patella were removed with a bone rongeur. The posterior aspect of patella was resected through a cutting guide and drilled through the drill guide. Provisional components were inserted. The knee was cycled through a range of motion. Rotation of the tibial component was noted marked on the proximal tibia. The proximal tibia was then broached to accept the I-beam stem portion of the tibial implant. The bony surfaces were irrigated extensively with normal saline solution. Palacos bone cement was then mixed. This was then pressurized in the proximal tibia. The tibial component was cemented in place. The femoral component was press fit in place. The knee was taken to full extension with a provisional tibial bearing implant. The patellar component was cemented in place and held with a clamp. Excessive cement was removed. The tourniquet was released. Hemostasis was obtained with electrocautery. The knee was cycled through a range of motion, was found to be stable with a 10 mm tibial bearing implant. Provisional implant was removed and anterior stabilized tibial bearing implant was then inserted and locked anteriorly with a locking bar. The knee was placed in 90 degrees of flexion. The medial retinaculum was closed with multiple interrupted mvexfs-us-esgqk sutures of #1 Vicryl reinforced with a running suture of #1 Stratafix. Subcutaneous tissues were closed with interrupted 0 and 2-0 Vicryl suture. The skin was closed with stainless steel swapna and Adaptic Neosporin bulky dressing was placed about the left knee. The patient was awakened and was transferred to postoperative recovery with anesthesia personnel present in satisfactory condition. Job ID: [id number] DocumentID: [id number] Dictated Date: 09/18/2019 22:45:47 Surgery Center Administrator Date: 09/19/2019 03:34:34 Dictated By: RALPH WEBER DO
[2019-09-19 06:08] LABS: HEMOGLOBIN 10.9 G/DL (13.3-17.7); MEAN PLATELET VOLUME 9.9 FL (7.4-10.4); RED CELL DISTRIBUTION WIDTH 12.7 % (10.0-14.5)
[2019-09-19 06:33] LABS: CALCIUM 7.9 MG/DL (8.5-10.1); CREATININE SERUM 1.25 MG/DL (0.60-1.30); POTASSIUM 4.1 MMOL/L (3.6-5.0)
[2019-09-19 08:00] VITALS: BP 125/68
[2019-09-19] MEDS: metFORMIN XR 500 MG (GLUCOPHAGE XR) TAB PO SCH (09:29)
[2019-09-19] MEDS: lisINopril 20 MG (PRINIVIL) TABLET PO SCH (09:30)
[2019-09-19] MEDS: CLOPIDOGREL 75 MG (PLAVIX) TABLET PO SCH (09:30)
[2019-09-19] MEDS: meTOprolol TARTRATE 25 MG (LOPRESSOR) TABLET PO SCH (09:30)
[2019-09-19] MEDS: PANTOPRAZOLE 40 MG (PROTONIX) TAB PO SCH (09:30)
[2019-09-19] MEDS: amLODIPine 2.5MG (NORVASC) TAB PO SCH (09:30)
--- NOTE | 2019-09-19 09:36 | Physical Therapy Evaluation ---
PT Evaluation-General Medical Diagnosis Admission Date Sep 18, 2019 at 08:36 Medical Diagnosis: left knee OA Onset Date: Sep 19, 2019 Therapy Diagnosis Therapy Diagnosis: (L) TKA Height/Weight Height (Feet): 6 Height (Inches): 1.00 Weight (Pounds): 207 Weight (Ounces): 0.0 Precautions Precautions/Isolations: Fall Prevention, Standard Precautions Weight Bear Status Right Lower Extremity: Right Full Weight Bearing Left Lower Extremity: Left Full Weight Bearing Medical History Pertinent Medical History: OA Current History Pt has a 3 yr history of (L) knee joint degeneration. Underwent elective (L) TKA 09/18/19 with goals of returning to an active lifestyle including fishing and golf. Social History Home: Single Level Current Living Status: Alone Entry Into Home: Stairs With Railing PT Steps Into Home: 6 Prior Prior Level of Function SCALE: Activities may be completed with or without assistive devices. 3-Ycsbyhvrdm-pczhkvh completes the activity by him/herself with no assistance from a helper. 5-Set-up or Clean-up Assistance-helper sets up or cleans up; patient completes activity. [place] assists only prior to or following the activity. 4-Supervision or Touching Assistance-helper provides verbal cues and/or touching/steadying and/or contact guard assistance as patient completes activity. Assistance may be provided throughout the activity or intermittently. 3-Partial/Moderate Assistance-helper does LESS THAN HALF the effort. [place] lifts, holds or supports trunk or limbs, but provides less than half the effort. 2-Substantial/Maximal Assistance-helper does MORE THAN HALF the effort. [place] lifts or holds trunk or limbs and provides more than half the effort. 7-Jxdqneaij-eqzguz does ALL the effort. Patient does none of the effort to complete the activity. Or, the assistance of 2 or more helpers is required for the patient to complete the activity. If activity was not attempted, code reason: 7-Patient Refused. 9-Not Applicable-not attempted and the patient did not perform the activity before the current illness, exacerbation or injury. 10-Not Attempted due to Environmental Limitations-(lack of equipment, weather restraints, etc.). 88-Not Attempted due to Medical Conditions or Safety Concerns. Bed Mobility: 6 Transfers (B,C,W/C): 6 Gait: 6 Stairs: 6 Wheelchair Mobility: 9 Indoor Mobility (Ambulation): Independent Stairs: Independent Prior Devices Use: Walker intermittent use of walker or cane depending on knee pain. PT Evaluation-Current Subjective Pt reports he is feeling good. Pain /10. Reports he is glad to finally have this done as he has been putting it off due to other life events taking priority. He looks forward to returning to golf and [employer]. Objective Patient Orientation: Normal For Age Attachments: IV ROM/Strength ROM Upper Extremities WFL ROM Lower Extremities left knee AROM 15-80 degrees Strength Upper Extremities 5/5 Strength Lower Extremities right LE 5/5 Left LE 5/5 with exception of knee flex and ext 4/5 Sensory Vision: Wears Glasses Hearing: Functional Hand Dominance: Right Sensation Right Upper Extremit: Intact Sensation Left Upper Extremity: Intact Sensation Right Lower Extremit: Intact Sensation Left Lower Extremity: Intact Transfers Roll Left to Right (QC): 6 Sit to Lying (QC): 6 Lying to Sitting/Side of Bed(Q: 6 Sit to Stand (QC): 5 Chair/Bgd-fs-Ehcfx Xfer(QC): 5 Car Transfer (QC): 10 Gait Does the Patient Walk?: Yes Mode of Locomotion: Walk Anticipated Mode of Locomotion: Walk Walk 10 feet (QC): 5 Walk 50 ft with 2 Turns(QC): 5 Walk 150 ft (QC): 5 Walking 10ft/uneven surface-QC: 5 Distance: 200 Gait Assistive Device: FWW Comments/Gait Description (B) knee flexion of 10-15 degrees, leans forward on walker and needs cues for upright posture. Wheelchair Training Does the Pt Use a Wheelchair?: No Wheel 50 ft with 2 turns (QC): 9 Wheel 150 ft (QC): 9 Type of Wheelchair: Manual Stairs 1 Step (curb) (QC): 88 4 Steps (QC): 88 12 Steps (QC): 88 Walking Assistive Device: Walker Patient to trial stairs in the pm. Balance Sitting Static: Normal Sitting Dynamic: Normal Standing Static: Fair Standing Dynamic: Fair Picking up an Object (QC): 5 Treatment left knee PROM. placed in CPM set at 0-70 degrees Assessment/Needs Pt has decreased knee ROM and dynamic balance following elective TKA. Pt shows good mobility for post op day one. He has excellent potential for discharge to prior living arrangments. Rehab Potential: Good PT Insole Channeler Goals Insole Channeler Goals PT Insole Channeler Goals Time Frame: Sep 21, 2019 Roll Left & Right (QC): 6 Sit to Lying (QC): 6 Lying-Sitting on Side/Bed(QC): 6 Sit to Stand (QC): 6 Chair/Hku-gg-Glqvp Xfer(QC): 6 Toilet Transfer (QC): 5 Car Transfer (QC): 5 Does the Patient Walk: Yes Walk 10 feet (QC): 6 Walk 50ft with 2 Turns (QC): 6 Walk 150 ft (QC): 6 Walking 10ft on Uneven Surface: 6 1 Step (curb) (QC): 5 4 Steps (QC): 5 12 Steps (QC): 5 Picking up an Object (QC): 5 Does the Pt use WC or Scooter?: No Wheel 50 feet with 2 turns (QC: 9 Type: Manual Wheel 150 feet: 9 Type: Manual PT Plan Problem List Problem List: Activity Tolerance, Functional Strength, Safety, Balance, Gait, Transfer, ROM Treatment/Plan Treatment Plan: Continue Plan of Care Treatment Plan: Functional Activity Oliver, Functional Strength, Gait, Safety, Therapeutic Exercise Treatment Duration: Sep 21, 2019 Frequency: 11 times per week Estimated Hrs Per Day: .25 hour per day Patient and/or Family Agrees t: Yes Discharge Recommendations Therapy Discharge Recommendati: Post Acute PT Target Placement home with home health Time/GCodes Time In: 915 Time Out: 940 Total Billed Treatment Time: 25 Total Billed Treatment visit, eval moderate complexity 25 min JACK MULLER PT Sep 19, 2019 09:36
--- NOTE | 2019-09-19 09:44 | Anesthesia-General Post-Op ---
General Patient Condition Mental Status/LOC: Same as Preop Cardiovascular: Satisfactory Nausea/Vomiting: Absent Respiratory: Satisfactory Pain: Controlled Complications: Absent Post Op Complications Complications None Follow Up Care/Instructions Patient Instructions None needed. Anesthesia/Patient Condition Patient Condition Patient is doing well, no complaints, stable vital signs, no apparent adverse anesthesia problems. No complications reported per nursing. GAURANG CHOWDHURY CRNA Sep 19, 2019 09:44
--- NOTE | 2019-09-19 11:08 | Occupational Therapy Eval ---
OT Evaluation-General/PLF Medical Diagnosis Admission Date Sep 18, 2019 at 08:36 Medical Diagnosis: left knee OA Onset Date: Sep 19, 2019 Therapy Diagnosis Therapy Diagnosis: Decreased ADL function Height/Weight Height (Feet): 6 Height (Inches): 1.00 Weight (Pounds): 207 Weight (Ounces): 0.0 Precautions Precautions/Isolations: Fall Prevention, Standard Precautions Safety Interventions: None Referral Referral Reason: Activity Tolerance, Self Care, Evaluation/Treatment, Strengthening/ROM Medical History Pertinent Medical History: OA Additional Medical History See nursing notes Current History Elected L TKA completed 09/18/19. Reviewed History: Yes Social History Home: Single Level Current Living Status: Alone Entry Into Home: Stairs With Railing Steps Into Home: 6 ADL-Prior Level of Function SCALE: Activities may be completed with or without assistive devices. 3-Fzzpbggagh-ciqsrzv completes the activity by him/herself with no assistance from a helper. 5-Set-up or Clean-up Assistance-helper sets up or cleans up; patient completes activity. [place] assists only prior to or following the activity. 4-Supervision or Touching Assistance-helper provides verbal cues and/or touching/steadying and/or contact guard assistance as patient completes activity. Assistance may be provided throughout the activity or intermittently. 3-Partial/Moderate Assistance-helper does LESS THAN HALF the effort. [place] lifts, holds or supports trunk or limbs, but provides less than half the effort. 2-Substantial/Maximal Assistance-helper does MORE THAN HALF the effort. [place] lifts or holds trunk or limbs and provides more than half the effort. 7-Zdmrtoqqq-iwaemt does ALL the effort. Patient does none of the effort to complete the activity. Or, the assistance of 2 or more helpers is required for the patient to complete the activity. If activity was not attempted, code reason: 7-Patient Refused. 9-Not Applicable-not attempted and the patient did not perform the activity before the current illness, exacerbation or injury. 10-Not Attempted due to Environmental Limitations-(lack of equipment, weather restraints, etc.). 88-Not Attempted due to Medical Conditions or Safety Concerns. Self Care: Independent Functional Cognition: Independent DME/Equipment: Bath Chair, Shower, Tall Toilet DME/Equipment Comments Pt IND without AE. Recommend grab bars within shower. Occupation: retired Drive Self: Yes Leisure Interests: TV, dogs, golf OT Current Status Subjective Pt seen in bed, alert/ awake. Pt's son present through session. Pt agreeable to OT evaluation. Mental Status/Objective Patient Orientation: Person, Place, Situation, Normal For Age Attachments: IV, Polar Pack, Other-See Comments (CPM) Current Glasses/Contacts: Yes Hearing Aids: No Dentures/Partials: No Hand Dominance: Right Upper Extremity ROM WFL BUE Upper Extremity Coordination WFL BUE Upper Extremity Sensation WFL BUE Upper Extremity Strength WFL BUE ADL-Treatment Eating (QC): 6 Oral Hygiene (QC): 7 Shower/Bathe Self (QC): 7 Upper Body Dressing (QC): 5 Lower Body Dressing (QC): 5 On/Off Footwear (QC): 6 Toileting Hygiene (QC): 6 (Per pt report) Toilet Transfer (QC): 6 (Per pt report) Other Treatments Pt seen in bed, unhooked from polar pack and CPM. Pt educated on OT role. Pt denies need for bathroom, states he completed before OT entry. Pt completes bed mob/ sit to stand to FWW with IND. pt ambulates with FWW to recliner chair, requests LB dressing. Pt completes LB dressing with S/u. Pt requests return to bed, bed mob with IND. CPM donned, pt denies polar pack due to movement. Pt educated on use of polar pack to reduce swelling/ pain. Pt denies pain and states may request to don post-lunch. Pt educated on recommendations of grab bars in shower, pt nods. Pt left in bed, call light in reach, all needs met. Education OT Patient Education: Correct positioning, Exercise program, Progress toward Goal/Update tx plan, Purpose of tx/functional activities, Safety issues Teaching Recipient: Patient Teaching Methods: Demonstration, Discussion Response to Teaching: Verbalize Understanding, Return Demonstration OT Prison Goals Labor Relations Consultant Goals Time Frame: Sep 19, 2019 Eating (QC): 6 Oral Hygiene (QC): 7 Toileting Hygiene (QC): 6 Shower/Bathe Self (QC): 7 Upper Body Dressing (QC): 5 Lower Body Dressing (QC): 5 On/Off Footwear (QC): 6 1=Demonstrate adherence to instructed precautions during ADL tasks. 2=Patient will verbalize/demonstrate understanding of assistive devices/modifications for ADL. 3=Patient will improve strength/tolerance for activity to enable patient to perform ADL's. OT Education/Plan Problem List/Assessment Assessment: No Skilled OT Needs ID'd Discharge Recommendations Plan/Recommendations: Discharge/Goals Met Equpiment Recommendations-D/C: Rails on Tub/Shower Treatment Plan/Plan of Care Treatment,Training & Education: Yes Patient would benefit from OT for education, treatment and training to promote independence in ADL's, mobility, safety and/or upper extremity function for ADL's. Plan of Care: OTHER (eval only) Treatment Duration: Sep 19, 2019 Frequency: 1 time per week (eval only) Rehab Potential: Good Time/GCodes Start Time: 10:28 Stop Time: 10:48 Total Time Billed (hr/min): 20 Billed Treatment Time 1, EVM (20) TERA CARRENO OTR Sep 19, 2019 11:08
[2019-09-19] MEDS: GABAPENTIN 100 MG (NEURONTIN) CAP PO SCH ×3 (11:47→20:17)
[2019-09-19] MEDS: ENOXAPARIN 40 MG/0.4 ML (LOVENOX) SYR SC SCH (11:49)
[2019-09-19 12:00] VITALS: BP 106/61
--- NOTE | 2019-09-19 12:38 | Consultation ---
History of Present Illness History of Present Illness Patient Consulted On(jayne/time) 09/19/19 12:32 Date Seen by Provider: Sep 19, 2019 Time Seen by Provider: 12:32 History of Present Illness This is an 84 year old male with a history of CAD, HTN, DM II, Hyperlipidemia and osteoarthritis. He underwent a left total knee arthroplasty by Dr. Chiang on 09/18/19. I have been asked to consult for medical management. He is currently doing well with ambulation and pain control and states he may be able to go home tomorrow. Allergies and Home Medications Allergies Coded Allergies: venom-wasp (Verified Adverse Reaction, Intermediate, swelling, 08/15/11) Uncoded Allergies: Insect Stings (Adverse Reaction, Intermediate, Swelling, 08/15/11) Home Medications Acetaminophen/Diphenhydramine 1 Each Tablet, 1 TAB PO HS PRN for SLEEP, (Reported) Amlodipine Besylate 2.5 Mg Tablet, 2.5 MG PO DAILY, (Reported) Atorvastatin Calcium 10 Mg Tablet, 5 MG PO HS, (Reported) TAKES 1/2 (10MG) TABLET Clopidogrel Bisulfate 75 Mg Tablet, 75 MG PO DAILY, (Reported) Lisinopril 20 Mg Tablet, 20 MG PO DAILY, (Reported) Metformin HCl 500 Mg Tab.er.24h, 500 MG PO DAILY, (Reported) Metoprolol Tartrate 25 Mg Tablet, 12.5 MG PO DAILY, (Reported) TAKES 1/2 (25MG) TABLET Pantoprazole Sodium 40 Mg Tablet.dr, 40 MG PO DAILY, (Reported) Patient Home Medication List Home Medication List Reviewed: Yes Past Djfrmul-Rqsbuv-Lzyxbx Hx Past Med/Social Hx: Reviewed Nursing Past Med/Soc Hx Patient Social History Alcohol Use: Occasionally Uses Number of Drinks Today: 0 Alcohol Beverage of Choice: Beer Recreational Drug Use: No Smoking Status: Former Smoker Former Smoker, Quit: May 03, 1978 Recent Foreign Travel: No Contact w/Someone Who Travel: No Recent Infectious Disease Expo: No Recent Hopitalizations: No Immunizations Up To Date Tetanus Booster (TDap): Unknown PED Vaccines UTD: Yes Date of Pneumonia Vaccine: Sep 18, 2017 Date of Influenza Vaccine: Jul 19, 2019 Seasonal Allergies Seasonal Allergies: Yes Past Medical History Surgeries: Yes (STENT IN HEART) Coronary Stent Respiratory: No Cardiac: Yes (STENTS) Coronary Artery Disease, High Cholesterol, Hypertension Neurological: No Reproductive Disorders: No Sexually Transmitted Disease: No HIV/AIDS: No Genitourinary: No Gastrointestinal: No Musculoskeletal: Yes Endocrine: Yes Diabetes, Non-Insulin dep HEENT: Yes ([place]) Loss of Vision: Denies Hearing Impairment: Hard of Hearing Cancer: No Psychosocial: No Integumentary: No Blood Disorders: No Adverse Reaction/Blood Tranf: No Family Medical History Completed stroke 21 FATHER No Pertinent Family Hx, CAD Over 55 Years Old Review of Systems Review of Systems General: Fatigue HEENT: No Head Aches, No Visual Changes, No Eye Pain, No Ear Pain, No Dysphasia, No Sinus Congestion, No Post Nasal Drip, No Sore Throat, No Other Pulmonary: No Dyspnea, No Cough, No Pleuritic Chest Pain, No Other Cardiovascular: No: Chest Pain, Palpitations, Orthopnea, Paroxysmal Noc. Dyspnea, Edema, Lt Headedness, Other Gastrointestinal: No: Nausea, Vomiting, Abdominal Pain, Diarrhea, Constipation, Melena, Hematochezia, Other Genitourinary: No Dysuria, No Frequency, No Incontinence, No Hematuria, No Retention, No Other Musculoskeletal: leg pain (knee pain) Neurological: Weakness (not ) Physical Exam Vital Signs Vital Signs - First Documented 09/18/19 08:50 Temp 36.3 Pulse 79 Resp 16 B/P (MAP) 163/77 Pulse Ox 97 O2 Delivery Room Air Capillary Refill : Less Than 3 Seconds Height, Weight, BMI Height: 6'1.00" Weight: 207lbs. 0.0oz. [id number]; 30.79 BMI Method:Stated General Appearance: No Apparent Distress Neck: Supple Respiratory: Lungs Clear Cardiovascular: Regular Rate, Rhythm, Systolic Murmur Gastrointestinal: Normal Bowel Sounds, Non Tender, Soft Rectal: Deferred Back: No CVA Tenderness Extremity: Non Tender, No Calf Tenderness, No Pedal Edema, Other (CHIO hose in place and left knee dressing dry) Neurologic/Psychiatric: Alert, Oriented x3 Skin: Warm/Dry Comments Laboratory Tests 09/19/19 05:21: White Blood Count 10.0, Red Blood Count 3.60L, Hemoglobin 10.9L, Hematocrit 33L, Mean Corpuscular Volume 93, Mean Corpuscular Hemoglobin 30, Mean Corpuscular Hem oglobin Concent 33, Red Cell Distribution Width 12.7, Platelet Count 177, Mean Platelet Volume 9.9, Sodium Level 137, Potassium Level 4.1, Chloride Level 103, Carbon Dioxide Level 23, Anion Gap 11, Blood Urea Nitrogen 23H, Creatinine 1.25, Estimat Glomerular Filtration Rate 55, BUN/Creatinine Ratio 18, Glucose Level 138H, Calcium Level 7.9L Assessment/Plan Assessment/Plan Admission Dx 1. S/P Total Right Knee Arthroplasty--pain control, DVT prophylaxis, PT/OT, monitor H/H, IS, patient is planning on DC to home when released by ortho 2. Hypertension--home meds restarted 3. DM II--well controlled 4. History of CAD--stable, follows routinely with cardiology FABIEN BYRNE DO Sep 19, 2019 12:38
--- NOTE | 2019-09-19 13:47 | Physical Therapy Daily Note ---
PT Daily Note-Current Subjective Pt. sitting edge of bed. States he is ready to go home and plans to golf on Tuesday. Pt. requests his sweat pants on before he goes to therapy. Pt also requests to use urinal before exiting room . Pt. comments that he is feeling like he is having trouble emptying his bladder . States he had this problem historically but not just previous to coming in. Pain Location: No Pain Reported Mental Status Patient Orientation: Normal For Age Attachments: IV Transfers SCALE: Activities may be completed with or without assistive devices. 0-Ikphlfnayy-uirsqul completes the activity by him/herself with no assistance from a helper. 5-Set-up or Clean-up Assistance-helper sets up or cleans up; patient completes activity. [place] assists only prior to or following the activity. 4-Supervision or Touching Assistance-helper provides verbal cues and/or touching/steadying and/or contact guard assistance as patient completes activity. Assistance may be provided throughout the activity or intermittently. 3-Partial/Moderate Assistance-helper does LESS THAN HALF the effort. [place] lifts, holds or supports trunk or limbs, but provides less than half the effort. 2-Substantial/Maximal Assistance-helper does MORE THAN HALF the effort. [place] lifts or holds trunk or limbs and provides more than half the effort. 4-Jnytnhpfj-pazezj does ALL the effort. Patient does none of the effort to complete the activity. Or, the assistance of 2 or more helpers is required for the patient to complete the activity. If activity was not attempted, code reason: 7-Patient Refused. 9-Not Applicable-not attempted and the patient did not perform the activity before the current illness, exacerbation or injury. 10-Not Attempted due to Environmental Limitations-(lack of equipment, weather restraints, etc.). 88-Not Attempted due to Medical Conditions or Safety Concerns. Roll Left & Right (QC): 6 Sit to Lying (QC): 6 Lying to Sitting/Side of Bed(Q: 6 Sit to Stand (QC): 6 Chair/Pws-ps-Wqviz Xfer(QC): 6 Weight Bearing Right Lower Extremity: Right Full Weight Bearing Left Lower Extremity: Left Full Weight Bearing Gait Training Does the Patient Walk?: Yes Walk 10 feet (QC): 5 Walk 50 ft with 2 Turns(QC): 5 Walk 150 ft (QC): 5 Gait Persons Needed: 1 Gait Assistive Device: FWW Pt. has own walker in room and initially began walking bending at trunk and keeping position far away from device. Pts. own FWW was brought taller by 3 holes. Pt. was educated in walking slower and using more prudent movement patterns. Pt. required assist for IV as well Stair Training Stair Training: Handrails/: 2 handrails #of Steps: 4 1 Step (curb) (QC): 5 4 Steps (QC): 5 Stairs: Pattern: Step to pt. was educated in sequence and to approach step closer with toes. Exercises Supine Ex: Ankle pumps, Quad Set, Heel Slides, Short Arc Quads, Straight leg raise, Hip abd/add Supine Reps: 20 Treatments urinal emptied with 100 then pt. urinated only 50 cc with much time spent trying to empty bladder Assessment Current Status: Good Progress AROM RTKR 10 to 70 PT Halfway Goals Foreclosure Paralegal Goals PT Halfway Goals Time Frame: Sep 21, 2019 Roll Left & Right (QC): 6 Sit to Lying (QC): 6 Lying-Sitting on Side/Bed(QC): 6 Sit to Stand (QC): 6 Chair/Vly-gx-Kuuyr Xfer(QC): 6 Toilet Transfer (QC): 5 Car Transfer (QC): 5 Does the Patient Walk: Yes Walk 10 feet (QC): 6 Walk 50ft with 2 Turns (QC): 6 Walk 150 ft (QC): 6 Walking 10ft on Uneven Surface: 6 1 Step (curb) (QC): 5 4 Steps (QC): 5 12 Steps (QC): 5 Picking up an Object (QC): 5 Does the Pt use WC or Scooter?: No Wheel 50 feet with 2 turns (QC: 9 Type: Manual Wheel 150 feet: 9 Type: Manual PT Plan Treatment/Plan Treatment Plan: Continue Plan of Care Treatment Plan: Functional Activity Oliver, Functional Strength, Gait, Safety, Therapeutic Exercise Treatment Duration: Sep 21, 2019 Frequency: 11 times per week Estimated Hrs Per Day: .25 hour per day Patient and/or Family Agrees t: Yes Safety Risks/Education Patient Education: Gait Training, Transfer Techniques, Steps, Correct Positioning, Safety Issues Teaching Recipient: Patient Teaching Methods: Demonstration, Discussion Response to Teaching: Verbalize Understanding, Return Demonstration, Reinforcement Needed Time/GCodes Time In: 1305 Time Out: 1340 Total Billed Treatment Time: 35 Total Billed Treatment 1,GT20m,EX15m MIKA POLO PROGRAM DIRECTOR CABLE TELEVISION Sep 19, 2019 13:47
--- NOTE | 2019-09-19 14:55 | NUR ---
PT REPORTING TROUBLE URINATING. PT HAS URINATED 50-100CC EACH TIME WHEN VOIDING. PT VOIDED 50CC AND WAS BLADDER SCANNED WITH 614CC PRESENT IN BLADDER. ATTEMPTED TO REACH DR BYRNE VIA CELL PHONE.
--- NOTE | 2019-09-19 15:30 | NUR ---
CALLED DR BYRNE OFFICE. REACHED DR CATY CLEMENTS NURSE. TYREE, RN TO NOTIIFY DR BYRNE OF PATIENT TROUBLE URINATING WITH 614 URINE PRESENT IN BLADDER.
--- NOTE | 2019-09-19 15:36 | NUR ---
CM/SS: Visited with pt about discharge plan Plan: Plan is for pt to return to his home at discharge DME: No identified needs, pt has adequate equipment in the home. Summary: Will follow up with pt to determine if there are other needs prior to discharge.
--- NOTE | 2019-09-19 15:49 | NUR ---
DR BYRNE TO PLACE NEW ORDERS. PT STRAIT CATH PER ORDERS. 800ML RETURNED OF CLEAR PB STRONG SMELLING URINE. UA SENT TO LAB. PT TOLERATED WELL.
[2019-09-19 16:36] VITALS: BP 146/67
[2019-09-19 17:05] LABS: BILIRUBIN,URINE NEGATIVE (NEGATIVE); CLARITY,URINE CLEAR; COLOR,URINE YELLOW; GLUCOSE, URINE (UA) NEGATIVE (NEGATIVE); KETONES,URINE NEGATIVE (NEGATIVE); LEUKOCYTE ESTERASE ,URINE NEGATIVE (NEGATIVE); NITRITE,URINE NEGATIVE (NEGATIVE); PH,URINE 5.5 (5-9); PROTEIN,URINE NEGATIVE (NEGATIVE)
[2019-09-19 17:28] LABS: BACTERIA,URINE NEGATIVE /HPF; SQUAMOUS EPITHELIAL CELL,UR RARE /HPF; WBC,URINE 0-2 /HPF
[2019-09-19] MEDS: BETHANECHOL 25 MG (URECHOLINE) TAB PO SCH ×2 (17:42→20:16)
[2019-09-19 19:51] VITALS: BP 141/69
[2019-09-19] MEDS: SENNA W/DOCUSATE (SENOKOT S) TABLET PO SCH (20:17)
[2019-09-19 23:43] VITALS: BP 162/73
[2019-09-20 04:09] VITALS: BP 147/65
--- NOTE | 2019-09-20 05:08 | NUR ---
PT URINATING 50-75 ML EVERY 15-20 MINUTES. 0418- BLADDER SCAN SHOWS 671 ML OF URINE IN BLADDER. 0425- STRAIGHT CATH PER ORDER OF GREATER THAN 400 ML. 650 ML OF LIGHT PB URINE RETURNED FROM BLADDER. STERILE TECHNIQUE STRICTLY FOLLOWED. PT TOLERATED WELL.
[2019-09-20] MEDS: BETHANECHOL 25 MG (URECHOLINE) TAB PO SCH ×2 (06:04→11:25)
[2019-09-20] MEDS: D5 1/2 NS 1000 ML IV SOLUTION 1,000 ML IV SCH (06:04)
[2019-09-20] MEDS: ACETAMINOPHEN 500 MG TAB (TYLENOL) PO SCH ×2 (06:04→11:24)
[2019-09-20] MEDS: GABAPENTIN 100 MG (NEURONTIN) CAP PO SCH ×2 (06:04→14:20)
[2019-09-20] MEDS: metFORMIN XR 500 MG (GLUCOPHAGE XR) TAB PO SCH (06:05)
[2019-09-20 06:28] LABS: HEMOGLOBIN 10.1 G/DL (13.3-17.7); MEAN PLATELET VOLUME 9.2 FL (7.4-10.4); RED CELL DISTRIBUTION WIDTH 12.8 % (10.0-14.5); WHITE BLOOD COUNT 7.4 10^3/uL (4.3-11.0)
--- NOTE | 2019-09-20 06:37 | Progress Note ---
Subjective Date Seen by a Provider: Sep 20, 2019 Time Seen by a Provider: 06:35 Subjective/Events-last exam POD 2 s/p left TKA, currently only complaint is related to some urinary retention post op, no other complaints, pain controlled, ambulating well. Objective Exam Vital Signs Date Time Temp Pulse Resp B/P (MAP) Pulse Ox O2 Delivery O2 Flow Rate FiO2 09/20/19 04:09 37.3 96 21 147/65 (92) 96 Room Air 09/19/19 23:43 37.2 99 21 162/73 (102) 94 Room Air 09/19/19 20:58 Room Air 09/19/19 19:51 37.3 95 20 141/69 (93) 91 Room Air 09/19/19 16:36 37.0 84 20 146/67 (93) 93 Room Air 09/19/19 12:00 37.2 83 20 106/61 (76) 96 Room Air 09/19/19 09:00 95 Room Air 09/19/19 08:00 36.2 80 20 125/68 (87) 95 Room Air I & O 09/20/19 07:00 Intake Total 2030 ml Output Total 1380 ml Balance 650 ml Capillary Refill : Less Than 3 Seconds General Appearance: No Apparent Distress Peripheral Pulses: 2+ Dorsalis Pedis (R), 2+ Left Dors-Pedis (L) Gastrointestinal: non tender, soft Extremity: Normal Capillary Refill, Normal Inspection, No Calf Tenderness Neurologic/Psychiatric: Alert, Oriented x3, No Motor/Sensory Deficits, Normal Mood/Affect Skin: Normal Color, Warm/Dry (dressing CDI left knee) Results Lab Laboratory Tests 09/19/19 16:00: Urine Color YELLOW, Urine Clarity CLEAR, Urine pH 5.5, Urine Specific [place] 1.010L, Urine Protein NEGATIVE, Urine Glucose (UA) NEGATIVE, Urine Ketones NEGATIVE, Urine Nitrite NEGATIVE, Urine Bilirubin NEGATIVE, Urine Urobilinogen 0.2, Urine Leukocyte Esterase NEGATIVE, Urine RBC (Auto) NEGATIVE, Urine RBC NONE, Urine WBC 0-2, Urine Squamous Epithelial Cells RARE, Urine Crystals NONE, Urine Bacteria NEGATIVE, Urine Casts NONE, Urine Mucus NEGATIVE, Urine Culture Indicated NO 09/20/19 06:10: White Blood Count 7.4, Red Blood Count 3.39L, Hemoglobin 10.1L, Hematocrit 31L, Mean Corpuscular Volume 91, Mean Corpuscular Hemoglobin 30, Mean Corpuscular Hemoglobin Concent 33, Red Cell Distribution Width 12.8, Platelet Count 173, Mean Platelet Volume 9.2 Assessment/Plan Assessment/Plan Assess & Plan/Chief Complaint A: s/p Left TKA Primary OA left knee post operative urinary retention P: Stable for discharge to home with home healthcare from ortho standpoint. Will wait to see if Dr. Maradiaga feels he is stable medically for discharge to home today or tomorrow. animal nursery worker to arrange home health therapy 5x/week x 2 weeks with staple removal in 1 week. ALEJANDRA PEACOCK LUDLOW MACHINE OPERATOR Sep 20, 2019 06:37
[2019-09-20 06:41] LABS: CALCIUM 8.4 MG/DL (8.5-10.1); CREATININE SERUM 1.29 MG/DL (0.60-1.30); POTASSIUM 3.7 MMOL/L (3.6-5.0)
[2019-09-20] MEDS ORDERED: SENN-20 PO (06:41)
[2019-09-20] MEDS ORDERED: HYDR-3820 PO (06:41)
[2019-09-20] MEDS ORDERED: TRAM50TA2 PO (06:41)
--- NOTE | 2019-09-20 06:45 | D/C HH Face to Face Order ---
D/C Face to Face Orders Reconcile Patient Problems Problems Reviewed?: Yes Instructions for Patient Via [email or web address], Patient Instructions/FollowUp: f/u [address] Chiang Physician to follow Patient: Андрей Discharge Diet for Home: No Restrictions Patient Problems: Primary OA left knee S/P left TKA Goals for Patient: improve ADLs Patient Data-Allergies,Ht & Wt Patient Allergies: Coded Allergies: venom-wasp (Verified Adverse Reaction, Intermediate, swelling, 08/15/11) Uncoded Allergies: Insect Stings (Adverse Reaction, Intermediate, Swelling, 08/15/11) Height (Feet): 6 Height (Inches): 1.00 Weight (Pounds): 207 Weight (Ounces): 0.0 Home Health Need/Face to Face Date of Face to Face: Sep 20, 2019 Clinical Findings: Muscle weakness, Pain with ambulation, Unsteady gait I have seen Pt lcqq-hx-lcan: Yes Discharged To: Home Diagnosis/Conditions: Primary OA left knee S/P left TKA debility Problems/Diagnosis/Condition: (1) Primary osteoarthritis of left knee Patient is Homebound due to: Marcia fall risk due to instabilty, Muscle weakness, Pain w/ambulation Homebound Status Due to the above stated illness, injury or surgical procedure (medical condition or diagnosis) and associated clinical findings, the patient is homebound because of his/her inability to leave home except with aid of a supportive device and/or person AND leaving the home requires a considerable and taxing effort or is medically contraindicated. Pt req the following assistanc: Walker Home Health Nursing Orders Home Health Services Order: Physical Therapy-Evaluate & Treat physical therapy 5x/week x 2 weeks to assist with ambulation and treat ROM Remove swapna and apply steri strips in 7 days CPM machine 6 her per day, advance 5 deg per day Home Health Infusion Therapy Line Start Date: Sep 20, 2019 Therapy Orders Therapy Orders: Physical Therapy Therapy Specific Orders: Eval assistive deivces, Teach enviro modifications/safety, Gait training, Increase strength/endurance, Restore ROM Certify Stmt I certify that this patient is under my care and that I, a nurse practitioner or a physician; a specimen preparation assistant working with me, had a face to face encounter that - meets the physician face to face encounter requirements with this patient as dated. ALEJANDRA PEACOCK APRN Sep 20, 2019 06:45
[2019-09-20 08:15] VITALS: BP 104/60
[2019-09-20] MEDS: CLOPIDOGREL 75 MG (PLAVIX) TABLET PO SCH (09:12)
[2019-09-20] MEDS: meTOprolol TARTRATE 25 MG (LOPRESSOR) TABLET PO SCH (09:12)
[2019-09-20] MEDS: PANTOPRAZOLE 40 MG (PROTONIX) TAB PO SCH (09:12)
[2019-09-20] MEDS: lisINopril 20 MG (PRINIVIL) TABLET PO SCH (09:12)
[2019-09-20] MEDS: amLODIPine 2.5MG (NORVASC) TAB PO SCH (09:12)
--- NOTE | 2019-09-20 10:17 | Physical Therapy Daily Note ---
PT Daily Note-Current Subjective Patient agrees to PT. No c/o. Denies pain Pain Numeric Pain Scale: 0-No Pain Location: No Pain Reported Mental Status Patient Orientation: Normal For Age Transfers SCALE: Activities may be completed with or without assistive devices. 5-Rzuwubgnib-umwrofz completes the activity by him/herself with no assistance from a helper. 5-Set-up or Clean-up Assistance-helper sets up or cleans up; patient completes activity. [place] assists only prior to or following the activity. 4-Supervision or Touching Assistance-helper provides verbal cues and/or touching/steadying and/or contact guard assistance as patient completes activity. Assistance may be provided throughout the activity or intermittently. 3-Partial/Moderate Assistance-helper does LESS THAN HALF the effort. [place] lifts, holds or supports trunk or limbs, but provides less than half the effort. 2-Substantial/Maximal Assistance-helper does MORE THAN HALF the effort. [place] lifts or holds trunk or limbs and provides more than half the effort. 2-Bcdypuuvw-iltbsr does ALL the effort. Patient does none of the effort to complete the activity. Or, the assistance of 2 or more helpers is required for the patient to complete the activity. If activity was not attempted, code reason: 7-Patient Refused. 9-Not Applicable-not attempted and the patient did not perform the activity before the current illness, exacerbation or injury. 10-Not Attempted due to Environmental Limitations-(lack of equipment, weather restraints, etc.). 88-Not Attempted due to Medical Conditions or Safety Concerns. Roll Left & Right (QC): 6 Sit to Lying (QC): 6 Lying to Sitting/Side of Bed(Q: 6 Sit to Stand (QC): 6 Chair/Tbw-zj-Xheuu Xfer(QC): 6 Weight Bearing Right Lower Extremity: Right Full Weight Bearing Left Lower Extremity: Left Full Weight Bearing Gait Training Does the Patient Walk?: Yes Distance: 600' Walk 10 feet (QC): 6 Walk 50 ft with 2 Turns(QC): 6 Walk 150 ft (QC): 6 Gait Assistive Device: FWW steady, reciprocal pattern Exercises Supine Ex: Ankle pumps, Quad Set, Heel Slides, Straight leg raise Supine Reps: 15 Seated Therapy Exercises: Ankle pumps, Long arc quads Seated Reps: 15 Assessment Patient tolerated treatment well and will dismiss to home on this date. Patient reports compliance with HEP. PT to dismiss patient at this time from services. PT Dinkey Engine Firer Goals Dinkey [employer] Firer Goals PT [employer] Firer Goals Time Frame: Sep 21, 2019 Roll Left & Right (QC): 6 Sit to Lying (QC): 6 Lying-Sitting on Side/Bed(QC): 6 Sit to Stand (QC): 6 Chair/Ifc-xa-Xbvhp Xfer(QC): 6 Toilet Transfer (QC): 5 Car Transfer (QC): 5 Does the Patient Walk: Yes Walk 10 feet (QC): 6 Walk 50ft with 2 Turns (QC): 6 Walk 150 ft (QC): 6 Walking 10ft on Uneven Surface: 6 1 Step (curb) (QC): 5 4 Steps (QC): 5 12 Steps (QC): 5 Picking up an Object (QC): 5 Does the Pt use WC or Scooter?: No Wheel 50 feet with 2 turns (QC: 9 Type: Manual Wheel 150 feet: 9 Type: Manual PT Plan Treatment/Plan Treatment Plan: Discontinue PT, goals met Treatment Plan: Functional Activity [place], Functional Strength, Gait, Safety, Therapeutic Exercise Treatment Duration: Sep 21, 2019 Frequency: 11 times per week Estimated Hrs Per Day: .25 hour per day Patient and/or Family Agrees t: Yes Time/GCodes Time In: 810 Time Out: 833 Total Billed Treatment Time: 23 Total Billed Treatment 1 visit EX 10 min GT 13 min AUBREE PENA PT Sep 20, 2019 10:17
[2019-09-20 11:55] VITALS: BP 146/65
--- NOTE | 2019-09-20 12:41 | Progress Note ---
Subjective Date Seen by a Provider: Sep 20, 2019 Time Seen by a Provider: 12:38 Subjective/Events-last exam Fwup left total knee arthroplasty, HTN, DM II, Hx of CAD. Had post-op urinary retention and had to be straight cathed yesterday evening but has not had to be cathed since. Objective Exam Vital Signs Date Time Temp Pulse Resp B/P (MAP) Pulse Ox O2 Delivery O2 Flow Rate FiO2 09/20/19 11:55 36.6 92 20 146/65 (92) 96 Room Air 09/20/19 09:43 96 Room Air 09/20/19 08:15 36.6 99 20 104/60 (75) 96 Room Air 09/20/19 04:09 37.3 96 21 147/65 (92) 96 Room Air 09/19/19 23:43 37.2 99 21 162/73 (102) 94 Room Air 09/19/19 20:58 Room Air 09/19/19 19:51 37.3 95 20 141/69 (93) 91 Room Air 09/19/19 16:36 37.0 84 20 146/67 (93) 93 Room Air I & O 09/20/19 07:00 Intake Total 2880 ml Output Total 2280 ml Balance 600 ml Capillary Refill : Less Than 3 Seconds General Appearance: No Apparent Distress Neck: Supple Respiratory: Lungs Clear Cardiovascular: Regular Rate, Rhythm Gastrointestinal: normal bowel sounds, non tender, soft Extremity: Non Tender, No Calf Tenderness, No Pedal Edema, Other (CHIO hose in place and left knee bandage dry) Neurologic/Psychiatric: Alert, Oriented x3 Results Lab Laboratory Tests 09/19/19 16:00: Urine Color YELLOW, Urine Clarity CLEAR, Urine pH 5.5, Urine Specific [place] 1.010L, Urine Protein NEGATIVE, Urine Glucose (UA) NEGATIVE, Urine Ketones NEGATIVE, Urine Nitrite NEGATIVE, Urine Bilirubin NEGATIVE, Urine Urobilinogen 0.2, Urine Leukocyte Esterase NEGATIVE, Urine RBC (Auto) NEGATIVE, Urine RBC NONE, Urine WBC 0-2, Urine Squamous Epithelial Cells RARE, Urine Crystals NONE, Urine Bacteria NEGATIVE, Urine Casts NONE, Urine Mucus NEGATIVE, Urine Culture Indicated NO 09/20/19 06:10: White Blood Count 7.4, Red Blood Count 3.39L, Hemoglobin 10.1L, Hematocrit 31L, Mean Corpuscular Volume 91, Mean Corpuscular Hemoglobin 30, Mean Corpuscular Hemoglobin Concent 33, Red Cell Distribution Width 12.8, Platelet Count 173, Mean Platelet Volume 9.2, Sodium Level 139, Potassium Level 3.7, Chloride Level 107, Carbon Dioxide Level 20L, Anion Gap 12, Blood Urea Nitrogen 19H, Creatinine 1.29, Estimat Glomerular Filtration Rate 53, BUN/Creatinine Ratio 15, Glucose Level 160H, Calcium Level 8.4L Assessment/Plan Assessment/Plan Assess & Plan/Chief Complaint 1. S/P left TKA--home with home PT/OT per ortho 2. Hypertension--stable 3. DMII--stable 4. Hx of CAD--stable 5. Post-op Urinary Retention--improving so will DC on urecholine and fwup--most recent bladder scan showed 135cc Clinical Quality Measures Admission Status Admission Dx 1. S/P Total Right Knee Arthroplasty--pain control, DVT prophylaxis, PT/OT, monitor H/H, IS, patient is planning on DC to home when released by ortho 2. Hypertension--home meds restarted 3. DM II--well controlled 4. History of CAD--stable, follows routinely with cardiology FABIEN BYRNE DO Sep 20, 2019 12:41
[2019-09-20] MEDS: ENOXAPARIN 40 MG/0.4 ML (LOVENOX) SYR SC SCH (12:42)
[2019-09-20] MEDS ORDERED: Bethanechol Chl PO (12:43)
--- NOTE | 2019-09-20 15:25 | NUR ---
CM/SS: Visited with pt to discuss discharge plan per consult. Plan: Pt will need home care services and selected [facility] per choice list. Referral made. [facility] indicates they cannot take the pt as they are unable to see pt until next week, it is also a holiday week. Pt informed and determined he would like referral to [facility]. Referral made. DME: None needed at this time, pt has a walker at home and other equipment. Summary: Pt having a pretty good day. Pt reports he is getting along fine with his knee. Pt reports he will do fine at home in recovery. Pt is informed that referral made to [facility] and they will be in contact with him after his discharge. Pt verbalized understanding.
== END 2019-09-20 15:40 | disposition home health service (06) | DRG 470 ==
LOC: 4TH 08:36 → SURG 08:37 → 4TH 13:45
PROVIDERS: ADMIT Orthopaedic Surgery; ATTEND Orthopaedic Surgery
PROC: 0SRD0J9 Replacement of Left Knee Joint with Synthetic Substitute, Cemented, Open Approach (ICD-10-PCS; principal; 2019-09-18 10:21)
DX: M17.12 Unilateral primary osteoarthritis, left knee (principal); R33.9 Retention of urine, unspecified; I25.10 Atherosclerotic heart disease of native coronary artery without angina pectoris; I10 Essential (primary) hypertension; E11.9 Type 2 diabetes mellitus without complications; E78.5 Hyperlipidemia, unspecified; Z79.84 Long term (current) use of oral hypoglycemic drugs; Z95.5 Presence of coronary angioplasty implant and graft; Z87.891 Personal history of nicotine dependence
CPT/HCPCS: 36415; 73560; 80048; 81000; 82962; 85027; 86850; 86900; 86901

== ENCOUNTER 2023-02-24 13:37 | Emergency (ER) | payer MEDICARE ==
[~2023-02-24] VITALS: Ht 185 cm; Wt 97.5 kg
[~2023-02-24 13:37] MED LIST changes: -ACET-2469 PO; +ACET-3075 PO; +ACHYD1T PO; +ASPI-1238 PO; -ASPI-983 PO; +Bethanechol Chl PO; -LISI-552 PO; +LISI20TA26 PO; +METF-865 PO; -METF500T8 PO; -OMEP40CA36 PO; +OMEP40CA6 PO; -PANT40TA3 PO; +PANT40TA52 PO; +SENN-20 PO; +TRM50T PO
--- NOTE | 2023-02-24 14:01 | ED Lower Extremity ---
General Chief Complaint: Lower Extremity Stated Complaint: FALL | LT HIP PAIN Nursing Triage Note: PT PRESENTS TO ED WITH LEFT HIP AND LEG PAIN AFTER FALLING OUT OF CHAIR AND LANDING ON LEFT SIDE. PT DENIES HITTING HEAD. Source: patient Exam Limitations: no limitations History of Present Illness Date Seen by Provider: February 24, 2023 Time Seen by Provider: 13:47 Initial Comments 87-year-old male presents to the ER with complaints of left hip pain after a fall which occurred around noon today. He states that he was trying to get up from his chair, and the chair came out from under him while he still had his weight on it and he landed on his left hip. He denies hitting his head. Denies any dizziness or lightheadedness prior to the fall. He states that he was able to get himself up off the floor, but needs assistance with walking. Allergies and Home Medications Allergies Coded Allergies: venom-wasp (Verified Adverse Reaction, Intermediate, swelling, 08/15/11) Uncoded Allergies: Insect Stings (Adverse Reaction, Intermediate, Swelling, 08/15/11) Patient Home Medication List Home Medication List Reviewed: Yes Acetaminophen/Diphenhydramine (Tylenol Pm Ex-Strength Caplet) 1 Each Tablet, 1 TAB PO HS PRN for SLEEP, (Reported) Entered as Reported by: JENSEN WHEELER on 09/03/19 1555 Amlodipine Besylate (Amlodipine Besylate) 2.5 Mg Tablet, 2.5 MG PO DAILY, (Reported) Entered as Reported by: JENSEN WHEELER on 05/19/18 1409 Atorvastatin Calcium (Atorvastatin Calcium) 10 Mg Tablet, 5 MG PO HS, (Reported) Entered as Reported by: SAHIL WRIGHT on 09/03/19 1038 Clopidogrel Bisulfate (Clopidogrel) 75 Mg Tablet, 75 MG PO DAILY, (Reported) Entered as Reported by: SAHIL WRIGHT on 09/03/19 1038 Hydrocodone Bit/Acetaminophen (HYDROcodone/APAP 10/325 TABLET) 1 Each Tablet, 1 EA PO Q4H PRN for PAIN-MODERATE (5-7) Prescribed by: ALEJANDRA PEACOCK on 09/20/19 0641 Hydrocodone/Acetaminophen (Hydrocodone-Acetamin 5-325 mg) 5 Mg-325 Mg Tablet, 1 TAB PO Q4H PRN for PAIN-MODERATE (5-7) Prescribed by: Pooja Lynch on 02/24/23 1521 Lisinopril (Lisinopril) 20 Mg Tablet, 20 MG PO DAILY, (Reported) Entered as Reported by: JENSEN WHEELER on 05/19/18 1405 Metformin HCl (Metformin HCl ER) 500 Mg Tab.er.24h, 500 MG PO DAILY, (Reported) Entered as Reported by: JENSEN WHEELER on 05/19/18 1405 Metoprolol Tartrate (Metoprolol Tartrate) 25 Mg Tablet, 12.5 MG PO DAILY, (Reported) Entered as Reported by: JENSEN WHEELER on 05/19/18 1409 Pantoprazole Sodium (Pantoprazole Sodium) 40 Mg Tablet.dr, 40 MG PO DAILY, (Reported) Entered as Reported by: SAHIL WRIGHT on 09/03/19 1038 Sennosides/Docusate Sodium (Senna-Time S Tablet) 1 Each Tablet, 2 EA PO BID Prescribed by: ALEJANDRA PEACOCK on 09/20/19 0641 Tramadol HCl (Tramadol HCl) 50 Mg Tablet, 50 MG PO Q6H Prescribed by: ALEJANDRA PEACOCK on 09/20/19 0641 [Bethanechol Chl] 25 MG TAB, 25 MG PO ACHS Prescribed by: FABIEN BYRNE on 09/20/19 1243 Review of Systems Constitutional: see HPI Past Qyyhwql-Zoqkkx-Ntuvij Hx Patient Social History Tobacco Use?: No Substance use?: No Alcohol Use?: Yes Alcohol type: Beer Alcohol Frequency: Daily Pt feels they are or have been: No Immunizations Up To Date Tetanus Booster (TDap): Unknown PED Vaccines UTD: Yes Influenza Vaccine Up-to-Date: No; Not Current Seasonal Allergies Seasonal Allergies: Yes Past Medical History Surgeries: Yes (STENT IN HEART) Coronary Stent Respiratory: No Cardiac: Yes (STENTS) Coronary Artery Disease, High Cholesterol, Hypertension Neurological: No Reproductive Disorders: No Sexually Transmitted Disease: No HIV/AIDS: No Genitourinary: No Gastrointestinal: No Musculoskeletal: Yes Endocrine: Yes Diabetes, Non-Insulin dep HEENT: Yes ([place]) Loss of Vision: Denies Hearing Impairment: Hard of Hearing Cancer: No Psychosocial: No Integumentary: No Blood Disorders: No Adverse Reaction/Blood Tranf: No Family Medical History Completed stroke 21 FATHER No Pertinent Family Hx, CAD Over 55 Years Old Physical Exam Vital Signs Vital Signs - First Documented 02/24/23 13:43 Temp 36.1 Pulse 57 Resp 22 B/P (MAP) 110/90 (97) Pulse Ox 98 O2 Delivery Room Air Capillary Refill : Height, Weight, BMI Height: 6'1.00" Weight: 207lbs. 0.0oz. 93.357701gz; 28.00 BMI Method:Stated General Appearance: WD/WN, no apparent distress Neck: supple, normal inspection Cardiovascular: regular rate, rhythm Respiratory: lungs clear, normal breath sounds, no respiratory distress, no accessory muscle use Hips: left hip bone tenderness, left hip pain Feet: left foot other (Sensation intact distally, cap refill less than 2 seconds, pulses intact) Neurologic/Psychiatric: alert, normal mood/affect Skin: normal color, warm/dry Progress/Results/Core Measures Results/Orders My Orders Orders - POOJA LYNCH APRN Hip, Left, 2 Views (02/24/23 13:56) Ct Pelvis Wo (02/24/23 14:32) Vital Signs/I&O 02/24/23 02/24/23 13:43 15:37 Temp 36.1 Pulse 57 72 Resp 22 20 B/P (MAP) 110/90 (97) 126/61 Pulse Ox 98 97 O2 Delivery Room Air Room Air Blood Pressure Mean: 97 Progress Progress Note : Progress Note Patient seen and evaluated, resting comfortably in bed, no acute distress. Based on exam and symptoms, x-ray of left hip ordered. 1434 x-ray reviewed. It shows underlying degenerative change. Questionable linear lucency at the greater trochanter. Radiologist recommends a CT to exclude a nondisplaced fracture. CT pelvis ordered. 1510 CT reviewed. It shows acute and mildly comminuted fracture of the left greater trochanter is minimally displaced. I called and spoke with Dr. Hickman, orthopedics. He states that if patient is able to, he may go home and be weightbearing as tolerated with a walker. Patient can then follow-up with Dr. Hickman in the clinic in a week. Results discussed with patient. Patient has an orthopedic physician who replaced his knee, he states he will follow-up with that provider. Patient is comfortable going home. Patient already has a walker at home that he can use. Discharge instructions and return precautions provided. Diagnostic Imaging Diagonstic Imaging: Xray Plain Films/CT/US/NM/MRI: hip Comments [facility] [place] NAME: DHRUV GUTIÉRREZ V [facility] REC#: [id number] PT STATUS: DEP ER : 1935 PHYSICIAN: POOJA LYNCH APRN ADMIT DATE: 02/24/23/ER Signed Date of Exam:02/24/23 HIP, LEFT, 2 VIEWS INDICATION: Left hip pain. TECHNIQUE: AP and oblique views of the left hip are obtained and compared to 03/10/2017. FINDINGS: There is underlying chronic change in the left hip joint. There is a questionable lucency in the proximal femur near the greater trochanter which was not apparent on the previous study. Nondisplaced fracture is difficult to exclude, consider CT for further evaluation. IMPRESSION: Underlying degenerative change. Questionable linear lucency at the greater trochanter is new compared to the prior study. Consider CT to exclude a nondisplaced fracture. Dictated by: Dictated on workstation # [id number] Dict: 02/24/23 1424 Trans: 02/24/23 1610 [id number] Interpreted by: RALPH SUERO MD Electronically signed by: RALPH SUERO MD 02/24/23 1610 Diagonstic Imaging: CT Plain Films/CT/US/NM/MRI: pelvis Comments [facility] [place] NAME: DHRUV GUTIÉRREZ V [facility] REC#: [id number] PT STATUS: DEP ER : 1935 PHYSICIAN: POOJA LYNCH APRN ADMIT DATE: 02/24/23/ER Signed Date of Exam:02/24/23 CT PELVIS WO PROCEDURE: CT pelvis without contrast. TECHNIQUE: Multiple contiguous axial images were obtained through the pelvis without the use of intravenous contrast. Sagittal and coronal reformations were performed. Auto Exposure Controls were utilized during the CT exam to meet ALARA standards for radiation dose reduction. INDICATION: Left hip pain after fall. COMPARISON: Left hip radiographs from same day. FINDINGS: There is an acute and mildly comminuted fracture involving the greater trochanter. The fracture fragments are displaced less than 5 mm. No fracture within the intertrochanteric region or femoral neck. No avascular necrosis of the femoral heads. 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 Cam deformities are present in the anterolateral aspects of both hips. No free pelvic fluid. No pelvic or inguinal lymphadenopathy. Prostate is borderline enlarged. Sigmoid colon diverticulosis without diverticulitis. IMPRESSION: Acute and mildly comminuted fracture of the left greater trochanter is minimally displaced. Dictated by: Dictated on workstation # [id number] Dict: 02/24/23 1456 Trans: 02/24/238 [id number] Interpreted by: ANETTE QIU MD Electronically signed by: ANETTE QIU MD 02/24/238 Departure Communication (Admissions) Time/Spoke to Consulting Phy: 15:10 Dr. Hickman, orthopedics, see progress note. Impression Primary Impression: Greater trochanter fracture Qualified Codes: S72.112A - Displaced fracture of greater trochanter of left femur, initial encounter for closed fracture Disposition: HOME, SELF-CARE Condition: Stable Departure-Patient Inst. Decision time for Depature: 15:18 Referrals: FABIEN BYRNE DO (PCP/Family) Primary Care Physician Patient Instructions: Femur Fracture (DC) Add. Discharge Instructions: Take [place] as needed for pain. You may also take ibuprofen as needed for pain. You may walk on your leg as tolerated, use the walker to assist you. Follow-up with orthopedics of your choice in 1 week. Return for severe pain, inability to walk, or any other new, concerning, or worsening symptoms. All discharge instructions reviewed with patient and/or family. Voiced understanding. Scripts Hydrocodone/Acetaminophen (Hydrocodone-Acetamin 5-325 mg) 5 Mg-325 Mg Tablet 1 TAB PO Q4H PRN for PAIN-MODERATE (5-7), #15 TAB 0 Refills Prov: POOJA LYNCH APRN 02/24/23 POOJA LYNCH APRN February 24, 2023 14:01
--- NOTE | 2023-02-24 14:31 | Diagnostic Imaging Report ---
INDICATION: Left hip pain. TECHNIQUE: AP and oblique views of the left hip are obtained and compared to 03/10/2017. FINDINGS: There is underlying chronic change in the left hip joint. There is a questionable lucency in the proximal femur near the greater trochanter which was not apparent on the previous study. Nondisplaced fracture is difficult to exclude, consider CT for further evaluation. IMPRESSION: Underlying degenerative change. Questionable linear lucency at the greater trochanter is new compared to the prior study. Consider CT to exclude a nondisplaced fracture. Dictated by: Dictated on workstation # [id number]
--- NOTE | 2023-02-24 15:04 | Diagnostic Imaging Report ---
PROCEDURE: CT pelvis without contrast. TECHNIQUE: Multiple contiguous axial images were obtained through the pelvis without the use of intravenous contrast. Sagittal and coronal reformations were performed. Auto Exposure Controls were utilized during the CT exam to meet ALARA standards for radiation dose reduction. INDICATION: Left hip pain after fall. COMPARISON: Left hip radiographs from same day. FINDINGS: There is an acute and mildly comminuted fracture involving the greater trochanter. The fracture fragments are displaced less than 5 mm. No fracture within the intertrochanteric region or femoral neck. No avascular necrosis of the femoral heads. 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 Cam deformities are present in the anterolateral aspects of both hips. No free pelvic fluid. No pelvic or inguinal lymphadenopathy. Prostate is borderline enlarged. Sigmoid colon diverticulosis without diverticulitis. IMPRESSION: Acute and mildly comminuted fracture of the left greater trochanter is minimally displaced. Dictated by: Dictated on workstation # [id number]
[2023-02-24] MEDS ORDERED: ACHD5005 PO (15:20)
[2023-02-24 15:37] VITALS: BP 126/61
== END 2023-02-24 15:37 | disposition home or self-care (01) ==
LOC: EDUNIT# 13:37 → ER 13:39
DX: S72.112A Displaced fracture of greater trochanter of left femur, initial encounter for closed fracture (principal); W07.XXXA Fall from chair, initial encounter
CPT/HCPCS: 72192; 73502; 99281